=== PATIENT | female | born 1960 | race Two or more races ===

== ENCOUNTER → 2017-10-03 | Outpatient (CLI) | payer OTHER, MEDICAID ==
[~2017-10-03] MED LIST: ALBU8.5H IH; CHOL100059 PO; CLIN30GE15 TP; DOXY-179 PO; DULO60CA56 PO; EPIN0.3P15 IM; ERGO500037 PO; FURO-47 PO; GLUC-198 PO; LISI5TAB25 PO; PREG75CA60 PO; SIMV-49 PO; SPIR25TA76 PO; TRAM-429 PO; TRET20CR37 TP
--- NOTE | 2017-10-03 17:49 | RADIOLOGY IMAGING REPORT ---
FACILITY: [facility] PATIENT NAME: Jael Covington : 1960 MR: [id number] V: [id number] EXAM DATE: ORDERING PHYSICIAN: RAKAN GONZALEZ TECHNOLOGIST: Location: [facility] Patient: Jael Covington : 1960 Visit/Account:[id number] Date of Sevice: 10/03/2017 CHEST W/O CONTRAST History: Follow-up; Hx of bilateral LL pulm nodules TECHNIQUE: Contiguous axial images were performed through the chest to the level of the adrenal gla nds. No IV contrast was administered. Coronal and sagittal reformatting was also performed. Dose Lowe ring Technique One of the following dose optimization techniques was utilized in the performance of this exam: Autom ated exposure control; adjustment of the mA and/or kV according to the patient's size; or use of an i terative reconstruction technique. Specific details can be referenced in the facility's radiology C T exam operational policy. COMPARISON STUDIES: None Lungs / Pleura: There is a 3 mm noncalcified subpleural nodule lateral aspect right lower lobe best seen on image 54 of series 3. There is an additional 2 mm subpleural nodule lateral aspect of the right lower lobe best seen on im age 56. There is a 5 x 3 mm subpleural nodule lateral aspect of the right lower lobe best seen on image 64 There is a 4 mm subpleural nodule posterior aspect left lower lobe best seen on image 80 There is a 3 mm nodule posterior lateral left lower lobe best seen on image 76 There is a 6 x 3 mm subpleural nodule lateral aspect of the left lower lobe best seen on image 65. there is a 2 x 3 mm subpleural nodule lateral aspect left lower lobe best seen on image 53. There is 3 mm a pleural nodule posterior aspect left lower lobe best seen on image 48. There is a 5 mm subpleural nodule lateral aspect of the left lower lobe best seen on image 46 is no evidence of pleural effusions. Mediastinum/nodes: Mediastinal structures not ideally evaluated due to lack of intravenous contrast no bulky mediastinal adenopathy is identified Heart and vessels: The ascending thoracic aorta is dilated at 4.3 cm. The descending thoracic aorta is dilated at 3.3 cm. There are mild coronary artery calcifications Musculoskeletal / Body wall: Mild spondylotic changes of the thoracic spine Upper abdomen: Postsurgical changes from a cholecystectomy. small hiatal hernia IMPRESSION: There are numerous small bilateral lower lobe pulmonary nodules ranging in size from 2 mm to 6 mm. T here are no prior studies available for comparison however the patient apparently does have prior out side studies therefore comparison is recommended Ascending thoracic aorta is dilated at 4.3 cm and the descending thoracic aorta is dilated at 3.3 cm Report Dictated By: Grisel Ziegler MD at 10/03/2017 5:37 PM Report E-Signed By: Grisel Ziegler MD at 10/03/2017 5:45 PM WSN:[email or web address]
== END ==
LOC: CT 01:10
PROVIDERS: ATTEND Nurse Practitioner Primary Care
DX: I71.2 Thoracic aortic aneurysm, without rupture (principal)
CPT/HCPCS: 71250

== ENCOUNTER → 2018-02-25 | Outpatient (CLI) | payer OTHER, MEDICAID ==
[2018-02-25 14:38] LABS: LDL CHOLESTEROL 96 mg/dl
== END ==
LOC: LAB 13:45
PROVIDERS: ATTEND Nurse Practitioner Primary Care
DX: E78.5 Hyperlipidemia, unspecified (principal)
CPT/HCPCS: 36415; 82040; 82247; 82310; 82374; 82435; 82465; 82565; 82947; 83718; 84075; 84132; 84155; 84295; 84450; 84460; 84478; 84520

== ENCOUNTER → 2018-03-15 | Outpatient (CLI) | payer OTHER | LOC: LAB 17:19 | PROVIDERS: ATTEND Nurse Practitioner Primary Care | DX: I10 Essential (primary) hypertension (principal); R79.89 Other specified abnormal findings of blood chemistry | CPT/HCPCS: 36415; 82040; 82247; 82306; 82310; 82374; 82435; 82565; 82947; 84075; 84132; 84155; 84295; 84450; 84460; 84520 ==

== ENCOUNTER → 2018-03-22 | Outpatient (CLI) | payer OTHER ==
--- NOTE | 2018-03-22 17:52 | RADIOLOGY IMAGING REPORT ---
[place] [facility] [place]: Jael Covington : 1960 MR: [id number] V: [id number] EXAM DATE: ORDERING PHYSICIAN: PEEWEE OLIVO TECHNOLOGIST: [place] [facility] [place] Jael Covington : 1960 Visit/Account:[id number] Date of Sevice: 03/22/2018 CHEST W/O CONTRAST History: Pulmonary nodules TECHNIQUE: Contiguous axial images were performed through the chest to the level of the adrenal gla nds. No IV contrast was administered. Coronal and sagittal reformatting was also performed.Dose Lower ing Technique One of the following dose optimization techniques was utilized in the performance of this exam: Autom ated exposure control; adjustment of the mA and/or kV according to the patient's size; or use of an i terative reconstruction technique. Specific details can be referenced in the facility's radiology C T exam operational policy. COMPARISON STUDIES: October 03, 2017. Lungs / Pleura: One compared the prior CT although pulmonary nodules have remained stable ranging i n size from 2 to 6 mm. No new pulmonary nodules are identified. Mediastinum/nodes: negative. Heart and vessels: The ascending thoracic aorta appears less dilated on the current examination catalina ures less than 4 cm in diameter. The previous apparent dilatation may be related to artifacts from l ack of cardiac gating. The descending thoracic aorta also no longer appears dilated. There are mild coronary artery calcifications Musculoskeletal / Body wall: There are spondylotic changes in the thoracic spine. Upper abdomen: There is a small hiatal hernia. There are postsurgical changes from a cholecystecto my IMPRESSION: All of the pulmonary nodules in the lower lobes appears stable measuring between two and 6 mm. For mu ltiple nodules measuring less than 6 mm, in a low risk patient (minimal or absent smoking history, no history of malignancy), no routine followup is recommended. In a high risk patient (smoking or malig cee history), optional 12 month followup can be obtained. The thoracic aorta does not appear dilated on the current examination. The apparent widening on the prior study may have been related to motion artifact and lack of cardiac gating Mild coronary artery calcifications are again noted Small hiatal hernia Report Dictated By: Grisel Ziegler MD at 03/22/2018 4:58 PM Report E-Signed By: Grisel Ziegler MD at 03/22/2018 5:08 PM WSN:[email or web address]
--- NOTE | 2018-03-22 22:09 | RADIOLOGY IMAGING REPORT ---
FACILITY: [facility] [place] PATIENT NAME: Jael Covington : 1960 MR: [id number] V: [id number] EXAM DATE: ORDERING PHYSICIAN: PEEWEE OLIVO TECHNOLOGIST: Location: [facility] [place] Patient: Jael Covington : 1960 Visit/Account:[id number] Date of Sevice: 03/22/2018 Ultrasound of the left labia: Indication: Evaluation of left labial swelling and possible mass. Technique: Targeted imaging was performed over the area of interest. Comparison: None. Findings: Within the left labia, there is a mildly hypoechoic, solid-appearing lesion, measuring appr oximately 1.8 x 1.7 x 0.7 cm. The differential diagnosis includes malignancy, complex Bartholin's gla nd cyst, or abscess. Further clinical evaluation is warranted. Impression: As above. Report Dictated By: Tony Barton MD at 03/22/2018 9:26 PM Report E-Signed By: Tony Barton MD at 03/22/2018 10:06 PM WSN:[id number]
== END ==
LOC: US 00:27
PROVIDERS: ATTEND Obstetrics & Gynecology
DX: R91.8 Other nonspecific abnormal finding of lung field (principal); I25.10 Atherosclerotic heart disease of native coronary artery without angina pectoris; K44.9 Diaphragmatic hernia without obstruction or gangrene; N94.89 Other specified conditions associated with female genital organs and menstrual cycle
CPT/HCPCS: 76999

== ENCOUNTER → 2018-03-22 | Outpatient (CLI) | payer OTHER | LOC: CT 00:26 | PROVIDERS: ATTEND Nurse Practitioner Primary Care | DX: Z02.9 Encounter for administrative examinations, unspecified (principal) | CPT/HCPCS: 71250 ==

== ENCOUNTER → 2018-04-04 | Outpatient (CLI) | payer OTHER ==
[~2018-04-04] MED LIST changes: +GADOBENATE 529MG/1ML 15ML VIAL IVP ONE; +NS(*) 0.9% 50 ML BAG 50 ML ONE; +SULF-198 PO
--- NOTE | 2018-04-04 15:48 | RADIOLOGY IMAGING REPORT ---
FACILITY: [facility] PATIENT NAME: Jael Covington : 1960 MR: [id number] V: [id number] EXAM DATE: ORDERING PHYSICIAN: PEEWEE OLIVO TECHNOLOG[place]: [place] [facility] [place]ael [place] : 1960 Visit/Account:[id number] Date of Sevice: 04/04/2018 Exam type: PELVIS W W/O CONTRAST History: 57-year-old female with a left labial cyst Comparison: Pelvic ultrasound 08/27/2016 TECHNIQUE: Multiplanar multisequence MRI imaging of the pelvis was performed with and without contras t. Patient received 15 cc of MultiHance contrast for this study.. Findings: The uterus is anteverted measures 5.7 x 4.5 x 5.5 cm. Cluster nabothian cysts at the cervix is noted . Endometrial stripe measures 6 mm which is slightly prominent for age. Vagina, bladder, urethra and rectum are unremarkable. The visualized labial cyst is questioned. Thin-walled cystic structure in right lower quadrant measures 8.4 x 5.4 x 7 cm possibly an ovarian cy st and can be followed with ultrasound. IMPRESSION: 1. No visualized labial cyst as clinically questioned. 2. Prominent cluster of nabothian cysts associated with a cervix. 3. Endometrial stripe measures 6 mm slightly thickened for age. 4. Ovaries are not well-visualized. 8.4 x 5.4 x 7 cm thin-walled cystic structure right lower quadr ant may represent an exophytic right ovarian cyst and can be followed with transabdominal ultrasound. Report Dictated By: Ubaldo Pepe MD at 04/04/2018 3:26 PM Report E-Signed By: Ubaldo Pepe MD at 04/04/2018 3:44 PM WSN:[email or web address]
== END ==
LOC: MRI 00:41
PROVIDERS: ATTEND Obstetrics & Gynecology
DX: N90.7 Vulvar cyst (principal)
CPT/HCPCS: 72197; A9577; J7050

== ENCOUNTER → 2018-05-08 | Outpatient (CLI) | payer OTHER, MEDICAID ==
[~2018-05-08] MED LIST changes: -GADOBENATE 529MG/1ML 15ML VIAL IVP ONE; +LISI-362 PO; -NS(*) 0.9% 50 ML BAG 50 ML ONE; +OMEP40CA48 PO; +[UNRECOGNIZED DRUG - CODE] PO
--- NOTE | 2018-05-08 17:23 | RADIOLOGY IMAGING REPORT ---
FACILITY: [facility] PATIENT NAME: Jael Riddle : 1960 MR: [id number] V: [id number] EXAM DATE: ORDERING PHYSICIAN: PEEWEE OILVO TECHNOLOGIST: Location: [facility] Patient: Jael Riddle : 1960 Visit/Account:[id number] Date of Sevice: 05/08/2018 PELVIC HISTORY: Mass Right lower quad abdomen found on mri TECHNIQUE: Transvaginal and transabdominal ultrasound pelvis. COMPARISON: MR the pelvis April 04, 2018 FINDINGS: Uterus: ; 9.4 cm length x 5.3 cm AP x 6.1 cm transverse. Myometrium: Three uterine fibroids are demonstrated. One fibroid is intramural, anterior fundal catalina uring 1.4 x 1.8 x 2 cm. A second fibroid is anterior intramural left lateral fundal measuring 1.3 x 2.1 x 1.6 in meters. A third fibroid is anterior intramural close to the endometrial stripe measurin g 1.4 x 1.5 x 1.4 cm.. Endometrium: Limited evaluation due to body habitus; double thickness 4.5 mm. Cervix: Numerous nabothian cysts. Ovaries: Right - not visualized due to patient's body habitus. There is an 8.9 x 7.3 x 5.8 cm right adne xal cyst Left - not visualized due to patient's body habitus. Blood flow is documented in each ovary by duplex Doppler ultrasound. Adnexa: Grossly unremarkable. Free pelvic fluid: None. IMPRESSION: Three uterine fibroids as described above the largest measuring 2.1 cm in diameter Ovaries were not well seen due to patient's body habitus. There is an 8.9 x 7.3 x 5.8 cm right adnex al cyst Numerous nabothian cysts Report Dictated By: Grisel Ziegler MD at 05/08/2018 5:13 PM Report E-Signed By: Grisel Ziegler MD at 05/08/2018 5:19 PM WSN:[email or web address]
== END ==
LOC: LAB 12:22
PROVIDERS: ATTEND Nurse Practitioner Primary Care
DX: D25.9 Leiomyoma of uterus, unspecified (principal); N83.8 Other noninflammatory disorders of ovary, fallopian tube and broad ligament; N88.8 Other specified noninflammatory disorders of cervix uteri; E55.9 Vitamin D deficiency, unspecified
CPT/HCPCS: 36415; 76830; 76856; 82306; 83735

== ENCOUNTER → 2018-05-08 | Outpatient (CLI) | payer OTHER, MEDICAID | LOC: LAB 12:20 | PROVIDERS: ATTEND Obstetrics & Gynecology | DX: R19.03 Right lower quadrant abdominal swelling, mass and lump (principal) | CPT/HCPCS: 86304 ==

== ENCOUNTER → 2018-05-12 | Outpatient (CLI) | payer OTHER, MEDICAID ==
[~2018-05-12] MED LIST changes: +IBUP600T22 PO; +LISI20TA29 PO; +OXYC-373 PO
[2018-05-12 15:55] LABS: PLATELET COUNT, AUTOMATED 148 K/uL (150-450)
--- NOTE | 2018-05-15 06:57 | EKG ---
FACILITY: [facility] - [place] PATIENT NAME: MIAN JALLOH : [id number] MR: [id number] V: [id number] EXAM DATE: ORDERING PHYSICIAN: PEEWEE OLIVO TECHNOLOGIST: EYAD Howard Reason : PRE OP SCREENING Blood Pressure : / mmHG Vent. Rate : 077 BPM Atrial Rate : 077 BPM P-R Int : 188 ms QRS Dur : 080 ms QT Int : 392 ms P-R-T Axes : 064 -13 032 degrees QTc Int : 443 ms Normal sinus rhythm Normal ECG No previous ECGs available Confirmed by JUANA SANDOVAL ([id number]) on 05/15/2018 9:20:33 AM Referred By: Confirmed By:JUANA SANDOVAL
== END ==
LOC: LAB 15:41
PROVIDERS: ATTEND Obstetrics & Gynecology
DX: E55.9 Vitamin D deficiency, unspecified (principal); I10 Essential (primary) hypertension
CPT/HCPCS: 82040; 82247; 82306; 82310; 82374; 82435; 82565; 82947; 84075; 84132; 84155; 84295; 84450; 84460; 84520; 85025

== ENCOUNTER 2018-05-17 01:10 | Day surgery (SDC) | payer OTHER, MEDICAID ==
[~2018-05-17] VITALS: Ht 157.5 cm; Wt 119.3 kg
[2018-05-17] MEDS ORDERED: ROCURONIUM BROM 10 MG/ML 10 ML ONE (10:58)
[2018-05-17 12:05] VITALS: BP 155/90
[2018-05-17] MEDS ORDERED: FAMOTIDINE 20 MG TAB PO ONE (12:40)
--- NOTE | 2018-05-17 13:28 | RADIOLOGY IMAGING REPORT ---
FACILITY: [facility] [place] PATIENT NAME: Jael Riddle : 1960 MR: [id number] V: [id number] EXAM DATE: ORDERING PHYSICIAN: JUANA WALLIS TECHNOLOGIST: Location: [facility] - [place] Patient: Jael Riddle : 1960 Visit/Account:[id number] Date of Sevice: 05/15/2018 Exam type: CERVICAL SPINE 2 OR 3 VIEW History: HX OF RA, preop Comparison: None. Findings: Three lateral views of the cervical spine in the neutral, flexion and extension position were submitt ed. There is no abnormal motion identified at C1-2. There are mild spondylotic changes at C5-6 with mild disc space narrowing no evidence of prevertebral soft tissue swelling IMPRESSION: 1. No abnormal motion at C1-2 Report Dictated By: Grisel Ziegler MD at 05/17/2018 1:22 PM Report E-Signed By: Grisel Ziegler MD at 05/17/2018 1:23 PM WSN:[email or web address]
[2018-05-17] MEDS ORDERED: ONDANSETRON 4 MG/2 ML VIAL ONE ×2 (13:44→16:31)
[2018-05-17] MEDS ORDERED: fentaNYL CITR 250 MCG/5 ML AMP ONE (13:44)
[2018-05-17] MEDS ORDERED: SUGAMMADEX SOD 200 MG/2 ML SDV ONE (13:44)
[2018-05-17] MEDS ORDERED: METOCLOPRAMIDE 10 MG/2 ML SDV ONE (13:44)
[2018-05-17] MEDS ORDERED: DEXAMETHASONE SOD 4 MG/ML VIAL ONE (13:45)
[2018-05-17] MEDS ORDERED: BUPIV/EPI 0.25% 1:200,000 50ML INFIL ONE (14:14)
[2018-05-17] MEDS ORDERED: ACETAMINOPHEN(*)1000 MG/100 ML 100 ML IVPB ONE (14:31)
[2018-05-17] MEDS ORDERED: CLINDAMYCIN(*) 600 MG/NS 50 ML 50 ML IV ONE (14:40)
[2018-05-17] MEDS ORDERED: NORMOSOL R SOLN(*) 1000 ML BAG 1,000 ML IV PRN (14:40)
[2018-05-17] MEDS ORDERED: MIDAZOLAM 2 MG/2 ML VIAL IVP PRN (14:40)
[2018-05-17] MEDS ORDERED: LEVOFLOXACIN/D5W*500 MG/100 ML 100 ML IVPB ONE (14:40)
[2018-05-17] MEDS ORDERED: LIDOCAINE/SOD BICARB 8.4% SYR ID ONE (14:40)
[2018-05-17 16:00] VITALS: BP 113/72
[2018-05-17] MEDS ORDERED: METOCLOPRAMIDE 10 MG/2 ML SDV IVP PRN (16:20)
[2018-05-17] MEDS ORDERED: LR(*) 1000 ML BAG 1,000 ML IV ONE (16:20)
--- NOTE | 2018-05-17 16:20 | Post Operative Note ---
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
[2018-05-17] MEDS ORDERED: OXYC-373 PO (16:24)
--- NOTE | 2018-05-17 16:36 | Short(Outpt) Discharge Summary ---
Discharge Summary Reason for Hosp/Final Diag: (1) Status post laparoscopic surgery Departure Discharge to: Home, Self Care Discharge Instructions Home Meds Active Scripts Lisinopril (LISINOPRIL) 10 Mg Tablet, 1 TAB PO QDAY for 90 Days, #90 TAB 0 Refills Prov:RAKAN GONZALEZ DNP [facility] 05/16/18 Erythromycin Base (ERYTHROMYCIN) 250 Mg Capsule.dr, 1 CAP PO BID for 7 Days, #14 CAP 0 Refills Prov:RAKAN GONZALEZ DNP [facility] 05/03/18 Ergocalciferol (Vitamin D2) (VITAMIN D2) 50,000 Unit Capsule, 1 CAP PO QWEEK, #8 CAPSULE 0 Refills One capsule orally once weekly for 8 weeks. Prov:RAKAN GONZALEZ DNP [facility] 03/17/18 Spironolactone (ALDACTONE) 25 Mg Tablet, 1 TAB PO QHS for 90 Days, #90 TAB 1 Refill Prov:RAKAN GONZALEZ DNP [facility] 03/15/18 Furosemide (FUROSEMIDE) 40 Mg Tablet, 1 TAB PO QDAY for 90 Days, #90 TAB 1 Re fill Prov:RAKAN GONZALEZ DNP [facility] 03/15/18 Tramadol/Acetaminophen (TRAMADOL-ACETAMINOPHN 37.5-325) 1 Each Tab, 1-2 TAB PO Q8H PRN for PAIN, #45 TAB 2 Refills Prov:RAKAN GONZALEZ DNP [facility] 02/15/18 Simvastatin (SIMVASTATIN) 20 Mg Tablet, 1 TAB PO HS for 90 Days, #90 TAB 0 Refills Prov:RAKAN GONZALEZ DNP [facility] 02/15/18 Epinephrine (EPIPEN 2-LAUREN) 0.3 Mg/0.3 Ml Pen.injctr, 0.3 MG IM PRN PRN for Anaphylaxis, #1 PACK 1 Refill Prov:RAKAN GONZALEZ DNP [facility] 05/13/17 Albuterol Sulfate 90 Mcg/Act (PROAIR HFA 90 MCG/ACT) 8.5 Gm Hfa.aer.ad, 2 PUFF IH Q4-6H PRN for SHORTNESS OF BREATH, #1 INHALER 1 Refill Prov:RAKAN GONZALEZ DNP [facility] 05/13/17 Reported Medications Cholecalciferol (Vitamin D3) (VITAMIN D3) 1,000 Unit Capsule, 1000 UNIT PO DAILY, CAPSULE 05/24/17 Discontinued Reported Medications Lisinopril (LISINOPRIL) 20 Mg Tablet, 20 MG PO QDAY, TAB 05/15/18 Glucosa Lyons 2KCL/Chondroitin Lyons (GLUCOSAMINE & CHONDROITIN CAP) Unknown Strength Capsule, PO DAILY, CAPSULE 05/24/17 Discontinued Scripts Ibuprofen (IBUPROFEN) 600 Mg Tablet, 1 TAB PO Q8H for pain, #30 TAB 0 Refills TAKE WITH FOOD EVERY 6 HOURS Prov:PEEWEE OLIVO MD 05/12/18 Oxycodone Hcl/Acetaminophen (OXYCODONE-ACETAMINOPHEN 5-325) 1 Each Tablet, 1 EACH PO Q4-6H PRN for ain, #30 TAB 0 Refills Prov:PEEWEE OLIVO MD 05/12/18 Omeprazole (OMEPRAZOLE) 40 Mg Capsule.dr, 1 TAB PO QDAY for 30 Days, #30 CAP 0 Refills Prov:RAKAN GONZALEZ DNP, [facility] 05/03/18 Lisinopril (LISINOPRIL) 10 Mg Tablet, 1 TAB PO QDAY for 90 Days, #90 TAB 0 Refills Prov:RAKAN GONZALEZ DNP [facility]- 05/03/18 Follow up Referrals: 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
[2018-05-17] MEDS ORDERED: IBUPROFEN 800 MG TAB PO SCH (17:00)
[2018-05-17] MEDS ORDERED: IBUP600T22 PO (17:06)
[2018-05-17] MEDS ORDERED: PROMETHAZINE 25 MG/ML 1 ML AMP ONE (17:08)
[2018-05-17 18:30] VITALS: BP_SYST 116; BP_DIAS 116; BP_DIAS 62
[2018-05-17 19:00] VITALS: BP 121/52
[2018-05-17 19:20] VITALS: BP 141/83
[2018-05-17 19:22] VITALS: BP 139/87
--- NOTE | 2018-05-17 19:26 | OPERATIVE REPORT 1 ---
EVENT DATE: May 17, 2018 SURGEON: Elenita Varner MD ANESTHESIOLOGIST: Yaakov Duque MD ANESTHESIA: General endotracheal tube. INTERPERSONAL COMMUNICATIONS PROFESSOR: Eriberto Diggs DO PREOPERATIVE DIAGNOSES 1. Cystic right adnexal mass diagnosed on MRI and ultrasound. 2. Persistent left labial mass. POSTOPERATIVE DIAGNOSES 1. Cystic right retroperitoneal mass. 2. Persistent left labial mass. PROCEDURES PERFORMED 1. Diagnostic laparoscopy. 2. Laparoscopic bilateral salpingectomy. 3. Left labial mass excision. FINDINGS 1. Some scar tissue at her prior cholecystectomy site. 2. Right cystic retroperitoneal mass just below appendix. 3. Normal gynecologic organs. SPECIMENS REMOVED 1. Bilateral fallopian tubes. 2. Left posterior labia. ESTIMATED BLOOD LOSS 25 mL INDICATIONS FOR PROCEDURE This patient is a 57-year-old, 2, para 2, who initially presented to clinic with chronic left labial swelling and mass. During her evaluation, she had an MRI to further delineate this mass, at which time an 8.4 x 5.4 x 7 cm cyst in the right lower quadrant was identified. She then underwent an ultrasound which revealed a right adnexal cyst measuring 9 cm which was simple in appearance. Her CA-125 was 20. She continued to have issues with this left labial mass which was ill-defined. She, therefore, was consented for surgery to remove the right ovarian cyst, bilateral fallopian tubes, and the labial mass. Please see History and Physical for full details. DESCRIPTION OF PROCEDURE The patient was properly identified and taken to the operating room. She was placed under general endotracheal tube anesthesia and then placed in the dorsal lithotomy position and prepped and draped in the usual fashion for a laparoscopic and vaginal surgery. She had SCDs on and functioning, and she did receive antibiotics for prophylaxis. A speculum was placed to visualize the cervix, which was without lesion. The anterior lip was grasped with an Allis clamp, and an acorn uterine manipulator was placed for minimal manipulation during the laparoscopic portion of the procedure. Attention was then turned to the laparoscopic portion of the procedure where the infraumbilical region was infiltrated with 0.25% Marcaine with epinephrine, and a 5 mm incision was made. A Veress needle was tested and proven to be functioning and, therefore, passed into the intra-abdominal cavity through this incision in the umbilicus using the double click test. Pneumoperitoneum was then achieved without difficulty. The 5 mm trocar was introduced under direct visualization, revealing a normal-appearing anterior abdominal wall in the pelvis. Surveillance of the upper abdomen did reveal some scar tissue along the prior cholecystectomy site. Otherwise, there were no significant adhesions. Two additional incisions were then made, a 5 mm incision on the patient's right side and an 11 mm on left side in order to accommodate these trocars which were introduced under direct visualization. The patient was then placed into Trendelenburg position, and the bowel was retracted out of the pelvis. At this time, the uterus appeared within normal limits, as did bilateral tubes and ovaries. There was no cystic mass in the pelvis at that time. Further surveillance did reveal an apparent cystic mass that was within the right retroperitoneum just above the iliac crest and just below the appendix. Due to her habitus and inability to determine exactly where it was coming from, I decided at this time not to try to excise this mass. However, bilateral fallopian tubes were taken using a Gyrus, working along the mesosalpinx. Hemostasis was assured along both mesosalpinx and the attachment to the uterus. The tubes were removed through the 11 mm trocar site without difficulty. Hemostasis was then assured. The patient was then flattened out, and using a Derrick-Thomasen device, the fascia of the 11 mm port was reapproximated with an 0 Vicryl. A pneumoperitoneum was then released, and all three skin incisions were reapproximated using a 4-0 Monocryl in a subcuticular fashion. Dermabond was placed over the incisions. Attention was then turned to the labial mass excision. On exam, the entire posterior left .labia was significantly indurated and firm, indicating likely a chronic infection or chronic inflammation. I was able to excise the entire firm and redundant area, which essentially removed the most posterior aspect of the left labia majora. Once this was removed, hemostasis was achieved within reason using electrocautery along the bed of the excision. Using a 2-0 Vicryl, the deep tissue was reapproximated, followed by more proximal tissue to bring the skin close to itself. A 3-0 Monocryl was then utilized to reapproximate the incision using a subcuticular fashion. Hemostasis was assured. Irrigation was performed. The manipulator and Allis clamp had been removed prior to excision of the labial mass. The patient tolerated this procedure well and recovered in the Post-Anesthesia Care Unit. All sponge, needle, and instrument counts were correct at the end of this procedure. YASIR
== END 2018-05-17 18:00 | disposition home or self-care (01) ==
LOC: OR 01:10
PROVIDERS: ATTEND Obstetrics & Gynecology
DX: D28.2 Benign neoplasm of uterine tubes and ligaments (principal); N82.8 Other female genital tract fistulae; D28.0 Benign neoplasm of vulva
CPT/HCPCS: 11424; 58661; 72040; 88302; 88305; J0131; J1100; J1956; J2250; J2405; J2550; J2765; J3010; J3490

== ENCOUNTER → 2018-06-14 | Outpatient (CLI) | payer OTHER, MEDICAID ==
[~2018-06-14] MED LIST changes: +CHOL500045 PO; +OMEP-125 PO
== END ==
LOC: US 01:09
PROVIDERS: ATTEND Nurse Practitioner Primary Care
DX: R06.02 Shortness of breath (principal)
CPT/HCPCS: 93306

== ENCOUNTER → 2018-08-25 | Outpatient (CLI) | payer OTHER, MEDICAID ==
[~2018-08-25] MED LIST changes: +CIPR-344 PO; +DICY20TA70 PO; +IBUP800T37 PO; +METR-1 PO; +PROM-110 PO; +Work Note
--- NOTE | 2018-08-25 11:03 | RADIOLOGY IMAGING REPORT ---
FACILITY: [facility] PATIENT NAME: Jael Covington : 1960 MR: [id number] V: [id number] EXAM DATE: ORDERING PHYSICIAN: RAKAN GONZALEZ TECHNOLOGIST: Location: [facility] - [place] Patient: Jael Covington : 1960 Visit/Account:[id number] Date of Sevice: 08/25/2018 Left knee, four views. HISTORY: Left knee pain, fell on ice two days ago. COMPARISON: None. Moderate size marginal osteophytes and moderate to severe joint space narrowing are present in all th ree knee compartments. A lucency is present in the lateral femoral condyle probably reflecting under lying osteopenia. The proximal tibia is subluxed laterally with respect to the distal femur, probabl y chronic. A few calcific densities are scattered in the soft tissues. No joint effusion. No acute fractures are identified. IMPRESSION: Severe osteoarthritis. Otherwise negative for acute fracture. Report Dictated By: Jona Miller MD at 08/25/2018 10:54 AM Report E-Signed By: Jona Miller MD at 08/25/2018 10:58 AM WSN:[email or web address]
== END ==
LOC: RAD 09:06
PROVIDERS: ATTEND Nurse Practitioner Primary Care
DX: M17.12 Unilateral primary osteoarthritis, left knee (principal)
CPT/HCPCS: 73564

== ENCOUNTER 2018-08-28 07:57 | Emergency (ER) | payer OTHER, MEDICAID ==
[~2018-08-28 07:57] MED LIST changes: -CIPR-344 PO; -DICY20TA70 PO; -METR-1 PO; -PROM-110 PO
--- NOTE | 2018-08-28 07:57 | ER Report ---
History and Physical Time Seen By MD: 07:56 HPI/ROS CHIEF COMPLAINT: Abdominal pain HISTORY OF PRESENT ILLNESS: Patient is a 57-year-old female who presents to emergency department with severe crampy abdominal pain and severe nausea and vomiting that began yesterday morning insidious and has progressed throughout the evening and today. Patient states that she's had her gallbladder removed but no other surgeries. She denies any fevers or chills. She cannot find a position of comfort and is writhing on the gurney for pain. Patient denies any fevers or chills she denies chest pain or shortness of breath. No similar symptoms in the past. REVIEW OF SYSTEMS: Constitutional: No fever, no chills. Eyes: No discharge. ENT: No sore throat. Cardiovascular: No chest pain, no palpitations. Respiratory: No cough, no shortness of breath. Gastrointestinal: Generalized crampy abdominal pain with nausea and vomiting no diarrhea Genitourinary: No hematuria. Musculoskeletal: No back pain. Skin: No rashes. Neurological: No headache. Allergies: Coded Allergies: Egg Derived (Verified Allergy, Severe, 05/16/17) Penicillins (Verified Allergy, Severe, 05/16/17) bee pollen (Verified Allergy, Severe, 05/16/17) Home Meds Active Scripts [Work Note] No Conflict Check Patient seen in the office today and evaluated after falling on ice. Please excuse from work 08/24 & 08/25 due to falling on ice on 08/23/18 Prov:RAKAN GONZALEZ DNP, FNP-BC 08/25/18 Ibuprofen (IBUPROFEN) 800 Mg Tablet, 1 TAB PO Q8H PRN for PAIN, #20 TAB 0 Refills Prov:RAKAN GONZALEZ DNP, FNP-BC 08/25/18 Omeprazole (OMEPRAZOLE) 20 Mg Capsule.dr, 1 CAP PO QDAY, #90 CAP 1 Refill Prov:RAKAN GONZALEZ DNP, FNP-BC 06/14/18 Cholecalciferol (Vitamin D3) (VITAMIN D) 5,000 Unit Tablet, 2 TAB PO QDAY for 90 Days, #90 CAPSULE 0 Refills Prov:RAKAN GONZALEZ DNP, FNP-BC 06/14/18 Lisinopril (LISINOPRIL) 10 Mg Tablet, 1 TAB PO QDAY for 90 Days, #90 TAB 0 Refills Prov:RAKAN GONZALEZ Josh [facility] 05/16/18 Spironolactone (ALDACTONE) 25 Mg Tablet, 1 TAB PO QHS for 90 Days, #90 TAB 1 Refill Prov:RAKAN GONZALEZ Josh [facility] 03/15/18 Furosemide (FUROSEMIDE) 40 Mg Tablet, 1 TAB PO QDAY for 90 Days, #90 TAB 1 Refill Prov:CARLOSRAKAN DNP [facility] 03/15/18 Tramadol/Acetaminophen (TRAMADOL-ACETAMINOPHN 37.5-325) 1 Each Tab, 1-2 TAB PO Q8H PRN for PAIN, #45 TAB 2 Refills Prov:CARLOSRAKAN DNP [facility] 02/15/18 Simvastatin (SIMVASTATIN) 20 Mg Tablet, 1 TAB PO HS for 90 Days, #90 TAB 0 Refills Prov:RAKAN GONZALEZ DNP [facility] 02/15/18 Epinephrine (EPIPEN 2-LAUREN) 0.3 Mg/0.3 Ml Pen.injctr, 0.3 MG IM PRN PRN for Anaphylaxis, #1 PACK 1 [facility] 05/13/17 Albuterol Sulfate 90 Mcg/Act (PROAIR HFA 90 MCG/ACT) 8.5 Gm Hfa.aer.ad, 2 PUFF IH Q4-6H PRN for SHORTNESS OF BREATH, #1 INHALER 1 Refill Prov:CARLOSRAKAN SALMERON DNP [facility] 05/13/17 Past Medical/Surgical History Past medical history for hypertension, history of asthma history of g astroesophageal reflux disease, fibromyalgia, hypothyroidism past surgical history for tonsillectomy, cholecystectomy and section laparoscopic bilateral salpingectomy and left labial mass excision, urethral dilatation Hx Smoking: No Smoking Status: Never Smoker Constitutional Vital Sign - Last 24 Hours 08/28/18 08/28/18 08/28/18 08/28/18 07:57 08:00 08:04 08:17 Temp 97.5 Pulse ??? 92 86 Resp 16 48 B/P (MAP) 146/92 (110) Pulse Ox 98 94 O2 Delivery Room Air 08/28/18 08/28/18 08/28/18 08/28/18 08:30 08:35 08:37 08:57 Pulse 82 76 Resp 31 10 B/P (MAP) 157/75 (102) Pulse Ox 79 98 O2 Flow Rate 2.0 08/28/18 08/28/18 09:00 10:02 B/P (MAP) 155/82 (106) O2 Flow Rate 3.0 Physical Exam General/Constitutional: Patient is awake, alert, nontoxic and in no acute respiratory distress. Head: Normocephalic and atraumatic. Neck: Supple, no adenopathy. Cardiovascular: Heart is regular rate and rhythm without audible murmurs, rubs or gallops. Pulmonary: Lungs are clear to auscultation bilaterally. There are no wheezes, rales, or rhonchi. Chest rise is symmetrical Abdomen: Diffuse abdominal pain hyperactive bowel sounds. Extremities: No gross deformities, No peripheral cyanosis. Able to move all 4 extremities. Neuro: Alert and oriented X3, Cranial nerves 2 thru 12 are intact and symmetrical. Patient has normal gait. Skin: No rashes, skin is warm dry and well perfused. Medical Decision Making Data Points Result Diagram: 08/28/18 0802 08/28/18 0802 Laboratory Hematology Test 08/28/18 08:02 08/28/18 09:01 Red Blood Count 5.36 M/uL (4.17-5.56) Mean Corpuscular Volume 92.3 fL (80.0-96.0) Mean Corpuscular Hemoglobin 31.8 pg (26.0-33.0) Mean Corpuscular Hemoglobin Concent 34.5 g/dL (32.0-36.0) Red Cell Distribution Width 13.5 % (11.5-14.5) Mean Platelet Volume 10.7 fL (7.2-11.1) Neutrophils (%) (Auto) 88.0 % (39.4-72.5) Lymphocytes (%) (Auto) 8.8 % (17.6-49.6) Monocytes (%) (Auto) 3.1 % (4.1-12.4) Eosinophils (%) (Auto) 0.0 % (0.4-6.7) Basophils (%) (Auto) 0.1 % (0.3-1.4) Nucleated RBC Relative Count (auto) 0.1 /100WBC Neutrophils # (Auto) 10.6 K/uL (2.0-7.4) Lymphocytes # (Auto) 1.1 K/uL (1.3-3.6) Monocytes # (Auto) 0.4 K/uL (0.3-1.0) Eosinophils # (Auto) 0.0 K/uL (0.0-0.5) Basophils # (Auto) 0.0 K/uL (0.0-0.1) Nucleated RBC Absolute Count (auto) 0.01 K/uL Sodium Level 136 mmol/L (137-145) Potassium Level 3.7 mmol/L (3.5-5.0) Chloride Level 101 mmol/L (98-107) Carbon Dioxide Level 20 mmol/L (22-31) Blood Urea Nitrogen 22 mg/dl (7-18) Creatinine 0.80 mg/dl (0.52-1.04) Glomerular Filtration Rate Calc > 60.0 Random Glucose 182 mg/dl (75-110) Calcium Level 9.5 mg/dl (8.4-10.2) Total Bilirubin 1.3 mg/dl (0.2-1.3) Aspartate Amino Transf (AST/SGOT) 29 U/L (0-35) Alanine Aminotransferase (ALT/SGPT) 24 U/L (0-56) Alkaline Phosphatase 124 U/L (0-126) Total Protein 8.3 g/dl (6.3-8.2) Albumin 4.8 g/dl (3.5-5.0) Lipase 171 U/L (23-300) Helicobacter pylori IgG Antibody Negative (NEGATIVE) Lactate 4.2 mmol/L (0.7-2.1) Chemistry Test 08/28/18 08:02 08/28/18 09:01 White Blood Count 12.1 k/uL (4.5-11.0) Red Blood Count 5.36 M/uL (4.17-5.56) Hemoglobin 17.1 g/dL (12.0-16.0) Hematocrit 49.5 % (34.0-47.0) Mean Corpuscular Volume 92.3 fL (80.0-96.0) Mean Corpuscular Hemoglobin 31.8 pg (26.0-33.0) Mean Corpuscular Hemoglobin Concent 34.5 g/dL (32.0-36.0) Red Cell Distribution Width 13.5 % (11.5-14.5) Platelet Count 180 K/uL (150-450) Mean Platelet Volume 10.7 fL (7.2-11.1) Neutrophils (%) (Auto) 88.0 % (39.4-72.5) Lymphocytes (%) (Auto) 8.8 % (17.6-49.6) Monocytes (%) (Auto) 3.1 % (4.1-12.4) Eosinophils (%) (Auto) 0.0 % (0.4-6.7) Basophils (%) (Auto) 0.1 % (0.3-1.4) Nucleated RBC Relative Count (auto) 0.1 /100WBC Neutrophils # (Auto) 10.6 K/uL (2.0-7.4) Lymphocytes # (Auto) 1.1 K/uL (1.3-3.6) Monocytes # (Auto) 0.4 K/uL (0.3-1.0) Eosinophils # (Auto) 0.0 K/uL (0.0-0.5) Basophils # (Auto) 0.0 K/uL (0.0-0.1) Nucleated RBC Absolute Count (auto) 0.01 K/uL Glomerular Filtration Rate Calc > 60.0 Calcium Level 9.5 mg/dl (8.4-10.2) Total Bilirubin 1.3 mg/dl (0.2-1.3) Aspartate Amino Transf (AST/SGOT) 29 U/L (0-35) Alanine Aminotransferase (ALT/SGPT) 24 U/L (0-56) Alkaline Phosphatase 124 U/L (0-126) Total Protein 8.3 g/dl (6.3-8.2) Albumin 4.8 g/dl (3.5-5.0) Lipase 171 U/L (23-300) Helicobacter pylori IgG Antibody Negative (NEGATIVE) Lactate 4.2 mmol/L (0.7-2.1) EKG/Imaging Imaging FACILITY: [facility] PATIENT NAME: Jael Covington : 1960 MR: [id number] V: [id number] EXAM DATE: ORDERING PHYSICIAN: DOMO STOKES TECHNOLOGIST: Location: [facility] [place] Patient: Jael Covington : 1960 Visit/Account:[id number] Date of : 08/28/2018 COMPUTED TOMOGRAPHY OF THE Abdomen and Pelvis with CONTRAST INDICATION: Abdominal pain. TECHNIQUE: Contiguous axial 3.[address] images were obtained through the abdomen a nd pelvis after the administration of 75 cc Isovue-370. Coronal and sagittal reformatted images were submitted. COMPARISON: MR abdomen July 12, 2018.. FINDINGS: Lung bases: There is a 4 mm nodule in the right lower lobe on series 2 image 9. 3 mm nodule in the right lower lobe on series 2 image 17. 2-3 mm nodule in the right lower lobe series 2 image 17. 4 mm nodule left lower lobe series 2 image 43. 4 mm nodule left lower lobe series 2 image 12. 2-3 mm nodule left lower lobe series 2 image 13. 2-3 mm nodule left lower lobe series 2 image 19. Liver and hepatic vasculature: No focal liver lesion. Gallbladder and bile ducts: Surgically absent gallbladder. Mild prominence of the common bile duct in keeping with cholecystectomy. Spleen: Normal spleen. Pancreas: Normal pancreas. Adrenals: Normal Kidneys, ureters and bladder: Symmetric enhancement. Subcentimeter hypodensity in the right kidney is too small to characterize. No stones or obstruction. Incompletely filled bladder. Retroperitoneum and aorta: Normal caliber aorta. Anterior to the right psoas muscle is a 6.7 cm water attenuation structure. This is similar to an MR of the pelvis dated April 04, 2018. GI tract, mesentery and peritoneum: Small hiatal hernia. No bowel obstruction. No free fluid or free air. There are a few scattered colonic diverticula without definite findings of diverticulitis. Equivocal wall thickening involving the sigmoid colon but with incomplete colonic distention limiting evaluation. Uterus and adnexa: Slightly lobulated contour of the uterus may represent underlying fibroids. Adnexal cystic structure anterior to the right psoas as noted above. Bones and soft tissues: No acute osseous abnormality. IMPRESSION: 1. Equivocal wall thickening involving the sigmoid colon may be entirely due to incomplete colonic distention, but correlate with clinical exam and laboratory findings. 2. Diverticulosis without findings of diverticulitis. 3. 6.7 cm low attenuation cystic structure anterior to the right psoas muscle is similar to prior imaging. 4. Surgically absent gallbladder with mild prominence of the common bile duct in keeping with cholecystectomy. One of the following dose optimization techniques was utilized in the performance of this exam: Automated exposure control; adjustment of the mA and/or kV according to the patient's size; or use of an iterative reconstruction technique. Specific details can be referenced in the facility's radiology CT exam operational policy. Report Dictated By: Imsael Lopez MD at 08/28/2018 9:37 AM Report E-Signed By: Ismael Lopez MD at 08/28/2018 9:54 AM [id number] ED Course/Re-evaluation ED Course 08/28/2018 10:07:35 am patient with significant pain that comes in waves since yesterday. Patient treated with a total of 4 mg of morphine a milligrams of Zo dean 25 mg of Phenergan now resting comfortably. Lactate is elevated but the remaining blood work appears unremarkable. Decision to Disposition Date: Aug 28, 2018 Decision to Disposition Time: 10:32 Depart Departure Latest Vital Signs Vital Signs Date Time Temp Pulse Resp B/P (MAP) Pulse Ox O2 Delivery O2 Flow Rate FiO2 08/28/18 10:02 3.0 08/28/18 09:00 155/82 (106) 08/28/18 08:57 76 10 98 08/28/18 08:00 97.5 Room Air Impression: Primary Impression: Colitis Condition: Improved Disposition: HOME OR SELF-CARE Referrals: RAKAN GONZALEZ DNP, [employer] [facility]-BC (PCP) New Scripts Promethazine Hcl (PROMETHAZINE HCL) 25 Mg Tablet 25 MG PO Q8H for Nausea, #15 TAB 0 Refills Prov: DOMO STOKES MD 08/28/18 Dicyclomine Hcl (DICYCLOMINE HCL) 20 Mg Tablet 20 MG PO QID PRN for abdominal pain for 10 Days, #40 TAB 0 Refills Prov: DOMO STOKES MD 08/28/18 Metronidazole (FLAGYL) 500 Mg Tablet 500 MG PO BID for 7 Days, #14 TAB 0 Refills Prov: DOMO STOKES MD 08/28/18 Ciprofloxacin Hcl 500 Mg Tab (CIPRO 500 MG TAB) 500 Mg Tablet 500 MG PO BID for 7 Days, #14 TAB 0 Refills Prov: DOMO STOKES MD 08/28/18 Departure Forms: ER Transition Record, Medications Reconciliation, Off Work/School Form, School or Work Release?: Work Number of days to be released: 2 Patient Portal Information Patient Instructions: Colitis (ED) Additional Instructions: Return to the emergency department if you do not have improvement of symptoms in the next 24-48 hours or return immediately if symptoms worsen at any time. DOMO STOKES MD Aug 28, 2018 07:57
[2018-08-28] MEDS ORDERED: ONDANSETRON 4 MG/2 ML VIAL IVP ONE ×2 (08:30→09:10)
[2018-08-28] MEDS ORDERED: NS(*) 0.9% 1000 ML BAG 1,000 ML IV ONE (08:30)
[2018-08-28] MEDS ORDERED: MORPHINE 4 MG/ML SDV IVP ONE (08:30)
[2018-08-28 08:39] LABS: PLATELET COUNT, AUTOMATED 180 K/uL (150-450)
[2018-08-28] MEDS ORDERED: ONDANSETRON 4 MG/2 ML VIAL ONE (09:11)
[2018-08-28] MEDS ORDERED: PROMETHAZINE 25 MG/ML 1 ML AMP IVP ONE (09:40)
--- NOTE | 2018-08-28 09:59 | RADIOLOGY IMAGING REPORT ---
FACILITY: [facility] PATIENT NAME: Jael Covington : 1960 MR: [id number] V: [id number] EXAM DATE: ORDERING PHYSICIAN: DOMO STOKES TECHNOLOGIST: Location: Patient: Jael Covington : 1960 Visit/Account:[id number] Date of Sevice: 08/28/2018 COMPUTED TOMOGRAPHY OF THE Abdomen and Pelvis with CONTRAST INDICATION: Abdominal pain. TECHNIQUE: Contiguous axial 3.[address] images were obtained through the abdomen and pelvis after the administration of 75 cc Isovue-370. Coronal and sagittal reformatted images were submitted. COMPARISON: MR abdomen July 12, 2018.. FINDINGS: Lung bases: There is a 4 mm nodule in the right lower lobe on series 2 image 9. 3 mm nodule in the ri ght lower lobe on series 2 image 17. 2-3 mm nodule in the right lower lobe series 2 image 17. 4 mm no dule left lower lobe series 2 image 43. 4 mm nodule left lower lobe series 2 image 12. 2-3 mm nodule left lower lobe series 2 image 13. 2-3 mm nodule left lower lobe series 2 image 19. Liver and hepatic vasculature: No focal liver lesion. Gallbladder and bile ducts: Surgically absent gallbladder. Mild prominence of the common bile duct i n keeping with cholecystectomy. Spleen: Normal spleen. Pancreas: Normal pancreas. Adrenals: Normal Kidneys, ureters and bladder: Symmetric enhancement. Subcentimeter hypodensity in the right kidney i s too small to characterize. No stones or obstruction. Incompletely filled bladder. Retroperitoneum and aorta: Normal caliber aorta. Anterior to the right psoas muscle is a 6.7 cm wate r attenuation structure. This is similar to an MR of the pelvis dated April 04, 2018. GI tract, mesentery and peritoneum: Small hiatal hernia. No bowel obstruction. No free fluid or free air. There are a few scattered colonic diverticula without definite findings of diverticulitis. Equiv ocal wall thickening involving the sigmoid colon but with incomplete colonic distention limiting eval uation. Uterus and adnexa: Slightly lobulated contour of the uterus may represent underlying fibroids. Adnexa l cystic structure anterior to the right psoas as noted above. Bones and soft tissues: No acute osseous abnormality. IMPRESSION: 1. Equivocal wall thickening involving the sigmoid colon may be entirely due to incomplete colonic di stention, but correlate with clinical exam and laboratory findings. 2. Diverticulosis without findings of diverticulitis. 3. 6.7 cm low attenuation cystic structure anterior to the right psoas muscle is similar to prior irma ging. 4. Surgically absent gallbladder with mild prominence of the common bile duct in keeping with cholecy stectomy. One of the following dose optimization techniques was utilized in the performance of this exam: Autom ated exposure control; adjustment of the mA and/or kV according to the patient's size; or use of an i terative reconstruction technique. Specific details can be referenced in the facility's radiology C T exam operational policy. Report Dictated By: Ismael Lopez MD at 08/28/2018 9:37 AM Report E-Signed By: Ismael Lopez MD at 08/28/2018 9:54 AM [id number]
[2018-08-28 10:30] VITALS: BP 157/88
[2018-08-28] MEDS ORDERED: CIPR-344 PO (10:35)
[2018-08-28] MEDS ORDERED: METR-1 PO (10:35)
[2018-08-28] MEDS ORDERED: DICY20TA70 PO (10:36)
[2018-08-28] MEDS ORDERED: PROM-110 PO (10:36)
== END 2018-08-28 10:50 | disposition home or self-care (01) ==
LOC: ER 08:05
DX: K52.9 Noninfective gastroenteritis and colitis, unspecified (principal)
CPT/HCPCS: 36415; 74177; 83605; 83690; 85025; 86677; 96361; 96374; 96375; 96376; 99284; J2270; J2405; J2550; J7030; 82040; 82247; 82310; 82374; 82435; 82565; 82947; 84075; 84132; 84155; 84295; 84450; 84460; 84520

== ENCOUNTER → 2018-08-28 | Outpatient (CLI) | payer OTHER, MEDICAID | LOC: AMB 07:43 | PROVIDERS: ATTEND Nurse Practitioner | DX: R10.84 Generalized abdominal pain (principal) | CPT/HCPCS: A0425; A0427 ==

== ENCOUNTER 2018-10-04 17:09 | Emergency (ER) | payer MEDICAID, OTHER ==
[~2018-10-04 17:09] MED LIST changes: +CIPR-344 PO; +DICY20TA70 PO; +METR-1 PO; +PROM-110 PO
--- NOTE | 2018-10-04 17:23 | ER Report ---
History and Physical Time Seen By MD: 17:20 Hx. of Stated Complaint: patient states that she has mid epigastric pain that has been going off and on since 08/27/18; patient states that she is having nausea and vomiting as well and has not been getting better HPI/ROS CHIEF COMPLAINT: Abdominal pain HISTORY OF PRESENT ILLNESS: 58 year old female presents to ED with abdominal pain. Reports pain started today after lunch around 1300. Reports the pain is more of a pressure in the upper mid-abdominal area. It feels like there is a fist deep in her abdomen. It feels as if she has to have a bowel movement, but when she tries she doesn't have to go. Rates her pain an 8 out of 10. Denies taking anything for the pain; reports associated symptoms of nausea and vomiting. Has vomited three times today, so has not been able to keep much food or fluids down. Patient was diagnosed with colitis on August 28. Reports this pain is very similar to the pain when she was diagnosed with colitis. Reports that she was placed on antibiotics which helped with her pain at that time. Since then she has had pain very intermittently. Reports she has only been able to eat a bland diet because of the pain and associated nausea. REVIEW OF SYSTEMS: Constitutional: Reports decreased appetite. Reports chills but no fever. HEENT: Denies headache, vision changes. Respiratory: No cough, no dyspnea. Cardiovascular: No chest pain, no palpitations. Gastrointestinal: Reports upper mid-abdominal pain. Reports nausea and vomiting. Reports soft stools. Reports that she noticed a small amount of pink tinged to bright red blood on the toilet paper when she wiped. Denies coffee ground or tarry stools. Genitourinary: Reports recent menstrual bleed. Denies pain or burning with urination. Reports urine looks dehydrated. Musculoskeletal: No back pain. Allergies: Coded Allergies: Egg Derived (Verified Allergy, Severe, 10/04/18) Penicillins (Verified Allergy, Severe, 10/04/18) bee pollen (Verified Allergy, Severe, 10/04/18) Home Meds Active Scripts Hydrocodone Bit/Acetaminophen (HYDROCODON-ACETAMINOPHEN 5-325) 1 Each Tablet, 1 EACH PO Q4-6H PRN for PAIN, #8 TAB Prov:JENSEN ELIZONDO 10/04/18 Ondansetron 4 Mg Odt (ONDANSETRON 4 MG ODT) 4 Mg Tab.rapdis, 4 MG PO Q6H PRN for NAUSEA/VOMITING, #20 TAB Prov:DORA [facility]SE [facility] 10/04/18 Promethazine Hcl (PROMETHAZINE HCL) 25 Mg Tablet, 25 MG PO Q8H for Nausea, #15 TAB 0 Refills Prov:DOMO STOKES MD 08/28/18 Dicyclomine Hcl (DICYCLOMINE HCL) 20 Mg Tablet, 20 MG PO QID PRN for abdominal pain for 10 Days, #40 TAB 0 Refills Prov:DOMO STOKES MD 08/28/18 Ciprofloxacin Hcl 500 Mg Tab (CIPRO 500 MG TAB) 500 Mg Tablet, 500 MG PO BID for 7 Days, #14 TAB 0 Refills Prov:DOMO STOKES MD 08/28/18 Ibuprofen (IBUPROFEN) 800 Mg Tablet, 1 TAB PO Q8H PRN for PAIN, #20 TAB 0 [facility] 08/25/18 Omeprazole (OMEPRAZOLE) 20 Mg Capsule.dr, 1 CAP PO QDAY, #90 CAP 1 Refill Prov:RAKAN GON[facility]ALEZ [facility] 06/14/18 Cholecalciferol (Vitamin D3) (VITAMIN D) 5,000 Unit Tablet, 2 TAB PO QDAY for 90 Days, #90 CAPSULE 0 Refills Prov:RAKAN [facility]Z [facility] 06/14/18 Lisinopril (LISINOPRIL) 10 Mg Tablet, 1 TAB PO QDAY for 90 Days, #90 TAB 0 Refills Prov:RAKAN GONZALEZ [facility] 05/16/18 Spironolactone (ALDACTONE) 25 Mg Tablet, 1 TAB PO QHS for 90 Days, #90 TAB 1 Refill Prov:RAKAN GONZALEZ [facility] 03/15/18 Furosemide (FUROSEMIDE) 40 Mg Tablet, 1 TAB PO QDAY for 90 Days, #90 TAB 1 Refill Prov:RAKAN GONZALEZ [facility] 03/15/18 Tramadol/Acetaminophen (TRAMADOL-ACETAMINOPHN 37.5-325) 1 Each Tab, 1-2 TAB PO Q8H PRN for PAIN, #45 TAB 2 Refills Prov:CARLOSRAKAN DNP [facility] 02/15/18 Simvastatin (SIMVASTATIN) 20 Mg Tablet, 1 TAB PO HS for 90 Days, #90 TAB 0 Refills Prov:RAKAN GONZALEZ DNP [facility] 02/15/18 Epinephrine (EPIPEN 2-LAUREN) 0.3 Mg/0.3 Ml Pen.injctr, 0.3 MG IM PRN PRN for Anaphylaxis, #1 PACK 1 Refill Prov:RAKAN GONZALEZ DNP [facility] 05/13/17 Albuterol Sulfate 90 Mcg/Act (PROAIR HFA 90 MCG/ACT) 8.5 Gm Hfa.aer.ad, 2 PUFF IH Q4-6H PRN for SHORTNESS OF BREATH, #1 INHALER 1 Refill Prov:RAKAN GONZALEZ DNP [facility] 05/13/17 Discontinued Scripts Metronidazole (FLAGYL) 500 Mg Tablet, 500 MG PO BID for 7 Days, #14 TAB 0 Refills Prov:DOMO STOKES MD 08/28/18 [Work Note] No Conflict Check Patient seen in the office today and evaluated after falling on ice. Please excuse from work 08/24 & 08/25 due to falling on ice on 08/23/18 Prov:RAKAN GONZALEZ DNP [facility] 08/25/18 Past Medical/Surgical History Patient with past medical hx of hypertension, hypercholesterol, asthma, hiatal h ernia, fibromyalgia, hypothyroid, rheumatoid arthritis, right ovarian left labial mass. Past surgical history significant for lap tristan 2016, , knee scope, right ulnar nerve repair, urethral dilation as a child, tonsillectomy 1975, and multiple eye surgeries. Reviewed Nurses Notes: Yes Hx Smoking: No Smoking Status: Never Smoker Hx Substance Use Disorder: No Constitutional Vital Sign - Last 24 Hours 10/04/18 10/04/18 10/04/18 10/04/18 17:09 17:14 17:16 17:30 Temp 98.4 Pulse ??? 87 Resp 17 B/P (MAP) 171/101 171/101 (124) 144/84 (104) Pulse Ox 96 O2 Delivery Room Air 5/1/19 5/1/19 5/1/19 5/1/19 17:39 18:09 18:18 18:30 Pulse 100 86 B/P (MAP) 141/69 (93) 145/91 (109) Pulse Ox 96 92 10/04/18 10/04/18 10/04/18 10/04/18 18:39 19:00 19:09 19:30 Pulse 77 ??? B/P (MAP) ???/??? (1665) 135/75 (95) Pulse Ox 89 10/04/18 10/04/18 10/04/18 10/04/18 19:39 20:09 20:39 21:02 Pulse 78 92 82 Pulse Ox 89 90 100 O2 Flow Rate 2.0 Physical Exam General Appearance: The patient is alert, has no immediate need for airway protection and no current signs of toxicity. Eyes: Pupils equal and round no injection. Respiratory: Chest is non tender, lungs are clear to auscultation. Cardiac: regular rate and rhythm Gastrointestinal: Abdomen is distended, tender to palpation in mid upper-a bdomen, RLQ and LLQ. Bowel sounds hypoactive. No masses. Patient vomited x1 during exam. Musculoskeletal: Neck: Neck is supple and non tender. Extremities have full range of motion and are non tender. Skin: No rashes or lesions. DIFFERENTIAL DIAGNOSIS: After history and physical exam differential diagnosis was considered for pancreatitis, gastric ulcer, H. pylori, diverticulitis, perforation, obstruction. Medical Decision Making Data Points Result Diagram: 10/04/18181110/04/181811 Laboratory Hematology Test 10/04/18 18:12 10/04/18 19:08 Red Blood Count 4.63 M/uL (4.17-5.56) Mean Corpuscular Volume 92.4 fL (80.0-96.0) Mean Corpuscular Hemoglobin 32.1 pg (26.0-33.0) Mean Corpuscular Hemoglobin Concent 34.7 g/dL (32.0-36.0) Red Cell Distribution Width 13.5 % (11.5-14.5) Mean Platelet Volume 9.9 fL (7.2-11.1) Neutrophils (%) (Auto) 75.7 % (39.4-72.5) Lymphocytes (%) (Auto) 18.4 % (17.6-49.6) Monocytes (%) (Auto) 4.8 % (4.1-12.4) Eosinophils (%) (Auto) 0.6 % (0.4-6.7) Basophils (%) (Auto) 0.5 % (0.3-1.4) Nucleated RBC Relative Count (auto) 0.0 /100WBC Neutrophils # (Auto) 7.0 K/uL (2.0-7.4) Lymphocytes # (Auto) 1.7 K/uL (1.3-3.6) Monocytes # (Auto) 0.4 K/uL (0.3-1.0) Eosinophils # (Auto) 0.1 K/uL (0.0-0.5) Basophils # (Auto) 0.0 K/uL (0.0-0.1) Nucleated RBC Absolute Count (auto) 0.00 K/uL Sodium Level 133 mmol/L (137-145) Potassium Level 3.6 mmol/L (3.5-5.0) Chloride Level 100 mmol/L (98-107) Carbon Dioxide Level 26 mmol/L (22-31) Blood Urea Nitrogen 24 mg/dl (7-18) Creatinine 1.10 mg/dl (0.52-1.04) Glomerular Filtration Rate Calc 51.2 Random Glucose 113 mg/dl (75-110) Calcium Level 9.5 mg/dl (8.4-10.2) Total Bilirubin 0.9 mg/dl (0.2-1.3) Aspartate Amino Transf (AST/SGOT) 22 U/L (0-35) Alanine Aminotransferase (ALT/SGPT) 23 U/L (0-56) Alkaline Phosphatase 86 U/L (0-126) Total Protein 7.4 g/dl (6.3-8.2) Albumin 4.2 g/dl (3.5-5.0) Amylase Level 82 U/L (0-110) Lipase 152 U/L (23-300) Helicobacter pylori IgG Antibody Negative (NEGATIVE) Urine Color Yellow Urine Clarity Clear Urine pH 8.0 pH (4.8-9.5) Urine Specific [place] 1.025 Urine Protein Negative mg/dL (NEGATIVE) Urine Glucose (UA) Negative mg/dL (NEGATIVE) Urine Ketones 20 mg/dL (NEGATIVE) Urine Blood Moderate (NEGATIVE) Urine Nitrite Negative (NEGATIVE) Urine Bilirubin Negative (NEGATIVE) Urine Urobilinogen Negative mg/dL (0.2-1.9) Urine Leukocyte Esterase Trace (NEGATIVE) Urine RBC 38 /HPF (0-2/HPF) Urine WBC 3 /HPF (0-5/HPF) Urine Squamous Epithelial Cells Many /LPF (</=FEW) Urine Bacteria Few /HPF (NONE-FEW) Urine Mucus None /HPF (NONE-FEW) Chemistry Test 10/04/18 18:12 10/04/18 19:08 White Blood Count 9.2 k/uL (4.5-11.0) Red Blood Count 4.63 M/uL (4.17-5.56) Hemoglobin 14.8 g/dL (12.0-16.0) Hematocrit 42.7 % (34.0-47.0) Mean Corpuscular Volume 92.4 fL (80.0-96.0) Mean Corpuscular Hemoglobin 32.1 pg (26.0-33.0) Mean Corpuscular Hemoglobin Concent 34.7 g/dL (32.0-36.0) Red Cell Distribution Width 13.5 % (11.5-14.5) Platelet Count 169 K/uL (150-450) Mean Platelet Volume 9.9 fL (7.2-11.1) Neutrophils (%) (Auto) 75.7 % (39.4-72.5) Lymphocytes (%) (Auto) 18.4 % (17.6-49.6) Monocytes (%) (Auto) 4.8 % (4.1-12.4) Eosinophils (%) (Auto) 0.6 % (0.4-6.7) Basophils (%) (Auto) 0.5 % (0.3-1.4) Nucleated RBC Relative Count (auto) 0.0 /100WBC Neutrophils # (Auto) 7.0 K/uL (2.0-7.4) Lymphocytes # (Auto) 1.7 K/uL (1.3-3.6) Monocytes # (Auto) 0.4 K/uL (0.3-1.0) Eosinophils # (Auto) 0.1 K/uL (0.0-0.5) Basophils # (Auto) 0.0 K/uL (0.0-0.1) Nucleated RBC Absolute Count (auto) 0.00 K/uL Glomerular Filtration Rate Calc 51.2 Calcium Level 9.5 mg/dl (8.4-10.2) Total Bilirubin 0.9 mg/dl (0.2-1.3) Aspartate Amino Transf (AST/SGOT) 22 U/L (0-35) Alanine Aminotransferase (ALT/SGPT) 23 U/L (0-56) Alkaline Phosphatase 86 U/L (0-126) Total Protein 7.4 g/dl (6.3-8.2) Albumin 4.2 g/dl (3.5-5.0) Amylase Level 82 U/L (0-110) Lipase 152 U/L (23-300) Helicobacter pylori IgG Antibody Negative (NEGATIVE) Urine Color Yellow Urine Clarity Clear Urine pH 8.0 pH (4.8-9.5) Urine Specific [place] 1.025 Urine Protein Negative mg/dL (NEGATIVE) Urine Glucose (UA) Negative mg/dL (NEGATIVE) Urine Ketones 20 mg/dL (NEGATIVE) Urine Blood Moderate (NEGATIVE) Urine Nitrite Negative (NEGATIVE) Urine Bilirubin Negative (NEGATIVE) Urine Urobilinogen Negative mg/dL (0.2-1.9) Urine Leukocyte Esterase Trace (NEGATIVE) Urine RBC 38 /HPF (0-2/HPF) Urine WBC 3 /HPF (0-5/HPF) Urine Squamous Epithelial Cells Many /LPF (</=FEW) Urine Bacteria Few /HPF (NONE-FEW) Urine Mucus None /HPF (NONE-FEW) Urinalysis Test 10/04/18 19:08 Urine Color Yellow Urine Clarity Clear Urine pH 8.0 pH (4.8-9.5) Urine Specific [place] 1.025 Urine Protein Negative mg/dL (NEGATIVE) Urine Glucose (UA) Negative mg/dL (NEGATIVE) Urine Ketones 20 mg/dL (NEGATIVE) Urine Blood Moderate (NEGATIVE) Urine Nitrite Negative (NEGATIVE) Urine Bilirubin Negative (NEGATIVE) Urine Urobilinogen Negative mg/dL (0.2-1.9) Urine Leukocyte Esterase Trace (NEGATIVE) Urine RBC 38 /HPF (0-2/HPF) Urine WBC 3 /HPF (0-5/HPF) Urine Squamous Epithelial Cells Many /LPF (</=FEW) Urine Bacteria Few /HPF (NONE-FEW) Urine Mucus None /HPF (NONE-FEW) EKG/Imaging Imaging CT of abdomen and pelvis FINDINGS: Visualized thorax: Left lung base nodules measuring up to 5 mm are unchanged since 10/03/2017. No acute findings. Liver: Negative. Gallbladder and biliary system: Cholecystectomy. No bile duct dilation. Spleen: Negative. Pancreas: Negative. Adrenal glands: Negative. Kidneys and bladder: No renal mass or evidence of an obstructive uropathy. Urinary bladder is unremarkable. Vessels: Within normal limits. Bowel: Tiny hiatal hernia. No gastric distention. No small bowel obstruction. Appendix is unremarkable. Small amount of stool in the colon. There are a few distal colonic diverticula. No bowel inflammation. Pelvic organs: Negative. Lymph nodes, mesentery, and spaces: Well-circumscribed 6.5 x 8.1 x 6.5 cm simple appearing cystic fluid collection in the right lower quadrant anterior to the psoas is unchanged and suggestive of a benign fluid collection such as lymphocele. No lymph node enlargement. Free air/free fluid: None. Musculoskeletal: Tiny fat-containing umbilical hernia. Lumbar spine multilevel mild degenerative disc disease and moderate facet arthropathy. No acute findings. IMPRESSION: 1. No findings of acute disease in the abdomen or pelvis. 2. Chronic/incidental findings as described above. ED Course/Re-evaluation ED Course Upon arrival to the ED patient was admitted to an exam room, history and physical obtained, differentials considered. Patient presents with abdominal pain that started today after lunch around 1300. Reports the pain is more of a pressure in the upper mid-abdominal area. It feels like there is a fist deep in her abdomen. It feels as if she has to have a bowel movement, but when she tries to have a BM, she doesn't have to go. Rates her pain an 8 out of 10. Denies taking anything for the pain; reports associated symptoms of nausea and vomiting. Has vomited three times today, so has not been able to keep much food or fluids down. Patient was diagnosed with colitis on August 28. Reports this pain is very similar to the pain when she was diagnosed with colitis. Reports that she was placed on antibiotics which helped with her pain at that time. Sin ce then she has had pain very intermittently. Reports she has only been able to eat a bland diet because of the pain and associated nausea. Patient reports chills but no fever. Denies burning or frequency on urination. Reports small amount of pink tinged to red blood on toilet paper when she wiped after a bowel movement. Reports recent menstrual bleed; the first one in months. On exam, patient has tenderness to palpation in upper mid-abdomen, LLQ and RLQ. Abdomen slightly distended. Lungs clear to auscultation. Heart with regular rate and rhythm. IV started with 1000mL NS infusing, zofran 4mg IV given, Fentanyl, 50mcg IV given for pain. CBC, CMP, amylase, lipase, H. pylori, UA, and CT of abdomen and pelvis ordered. CBC normal with no elevated WBC, Na 133, Cr 1.10, BUN 24; H. Pylori negative, amylase 82, lipase 152. UA with trace leukocytes, moderate amount of blood, and 20 Ketones. Patient with recent menstrual bleed that could account for the blood in the urine. CT with no findings of acute disease in the abdomen or pelvis. Patient reports nausea and pain were better with initial doses of zofran and fentanyl, but now her nausea and pain are back. Fentanyl giv en at 1935 and zofran at 2030. Zofran did not help with the nausea, so promethazine 12.5mg IV given. CT scan and labs are benign with no acute processes including infection. Discussed with patient the need to follow-up with general surgery for possible colonosccopy. Patient reports vomiting again with the promethazine. However, patient is in agreement with going home tonight with zofran for the nausea. She will call tomorrow to make an appointment with general surgery and follow-up with her PCP this week. Decision to Disposition Date: October 04, 2018 Decision to Disposition Time: 22:11 Depart Departure Latest Vital Signs Vital Signs Date Time Temp Pulse Resp B/P (MAP) Pulse Ox O2 Delivery O2 Flow Rate FiO2 10/04/18 21:02 2.0 10/04/18 20:39 82 100 10/04/18 19:30 135/75 (95) 10/04/18 17:14 98.4 17 Room Air Impression: Primary Impression: Abdominal pain Additional Impression: Nausea & vomiting Condition: Condition Unchanged Disposition: HOME OR SELF-CARE Referrals: RAKAN GONZALEZ DNP, [employer] (PCP) LISSY HOLMAN JOHN A MD New Scripts Hydrocodone Bit/Acetaminophen (HYDROCODON-ACETAMINOPHEN 5-325) 1 Each Tablet 1 EACH PO Q4-6H PRN for PAIN, #8 TAB Prov: JENSEN ELIZONDO [employer] 10/04/18 Ondansetron 4 Mg Odt (ONDANSETRON 4 MG ODT) 4 Mg Tab.rapdis 4 MG PO Q6H PRN for NAUSEA/VOMITING, #20 TAB Prov: JENSEN ELIZONDO KARO 10/04/18 Patient Instructions: Abdominal Pain (ED) Additional Instructions: You may take Zofran as needed for nausea. You may take Lortab every 4-6 hours as needed for pain. Please call Dr. Peguero or Dr. Holman to follow-up for the abdominal, nausea, vomiting. Please follow-up with your primary care provider at the end of this week. Please drink plenty of water and get plenty of rest. Please return to the ER if your pain worsens, your vomiting does not subside, you have difficulty breathing, you develop fevers, or for any other concerns. Problem Qualifiers Primary Impression: Abdominal pain Abdominal location: epigastric Qualified Codes: R10.13 - Epigastric pain Additional Impression: Nausea & vomiting Vomiting type: unspecified Vomiting Intractability: unspecified Qualified Codes: R11.2 - Nausea with vomiting, unspecified JENSEN ELIZONDO KARO October 04, 2018 17:23
[2018-10-04] MEDS ORDERED: NS(*) 0.9% 1000 ML BAG 1,000 ML IV ONE (17:48)
[2018-10-04] MEDS ORDERED: ONDANSETRON 4 MG/2 ML VIAL IVP ONE ×3 (17:50→20:30)
[2018-10-04] MEDS ORDERED: fentaNYL CITR 100 MCG/2 ML AMP IVP ONE ×2 (17:50→19:35)
[2018-10-04 18:20] LABS: PLATELET COUNT, AUTOMATED 169 K/uL (150-450)
[2018-10-04] MEDS ORDERED: IOPAMIDOL 76% 150 ML INFUS BTL 150 ML ONE (18:25)
[2018-10-04 19:30] VITALS: BP 135/75
--- NOTE | 2018-10-04 19:45 | RADIOLOGY IMAGING REPORT ---
FACILITY: [facility] [place] PATIENT NAME: Jael Covington : 1960 MR: [id number] V: [id number] EXAM DATE: ORDERING PHYSICIAN: JENSEN ELIZONDO TECHNOLOGIST: Location: [facility] Patient: Jael Covington : 1960 Visit/Account:[id number] Date of Sevice: 10/04/2018 EXAMINATION: CT abdomen and pelvis with contrast COMPARISON: 08/28/2018 and earlier. HISTORY: Abdominal pain with nausea and vomiting. PROCEDURE: Multiplanar contrast enhanced CT of the abdomen and pelvis with 68 mL intravenous Isovue 3 70. One of the following dose optimization techniques was utilized in the performance of this exam: A utomated exposure control; adjustment of the mA and/or kV according to the patient's size; or use of an iterative reconstruction technique. Specific details can be referenced in the facility's radiolo gy CT exam operational policy. FINDINGS: Visualized thorax: Left lung base nodules measuring up to 5 mm are unchanged since 10/03/2017. No acut e findings. Liver: Negative. Gallbladder and biliary system: Cholecystectomy. No bile duct dilation. Spleen: Negative. Pancreas: Negative. Adrenal glands: Negative. Kidneys and bladder: No renal mass or evidence of an obstructive uropathy. Urinary bladder is unrema rkable. Vessels: Within normal limits. Bowel: Tiny hiatal hernia. No gastric distention. No small bowel obstruction. Appendix is unremarkabl e. Small amount of stool in the colon. There are a few distal colonic diverticula. No bowel inflammat ion. Pelvic organs: Negative. Lymph nodes, mesentery, and spaces: Well-circumscribed 6.5 x 8.1 x 6.5 cm simple appearing cystic flu id collection in the right lower quadrant anterior to the psoas is unchanged and suggestive of a aisha gn fluid collection such as lymphocele. No lymph node enlargement. Free air/free fluid: None. Musculoskeletal: Tiny fat-containing umbilical hernia. Lumbar spine multilevel mild degenerative disc disease and moderate facet arthropathy. No acute findings. IMPRESSION: 1. No findings of acute disease in the abdomen or pelvis. 2. Chronic/incidental findings as described above. Report Dictated By: Tarun Garcia MD at 10/04/2018 7:27 PM Report E-Signed By: Tarun Garcia MD at 10/04/2018 7:42 PM WSN:[id number]
[2018-10-04] MEDS ORDERED: PROMETHAZINE 25 MG/ML 1 ML AMP IVP ONE (20:55)
[2018-10-04] MEDS ORDERED: ONDANSETRON 4 MG ODT TH SL ONE (22:05)
[2018-10-04] MEDS ORDERED: ACET/HYDROC 5/325MG TH ER ONLY 2 TAB/BOTTLE PO ONE (22:05)
[2018-10-04] MEDS ORDERED: HYDR-385 PO (22:07)
[2018-10-04] MEDS ORDERED: ONDA4TAB9 PO (22:07)
[2018-10-06] MEDS ORDERED: SIMV-49 PO (11:37)
== END 2018-10-04 22:19 | disposition home or self-care (01) ==
LOC: ER 17:25
DX: R10.32 Left lower quadrant pain (principal); R11.2 Nausea with vomiting, unspecified
CPT/HCPCS: 74177; 81001; 82150; 83690; 85025; 86677; 87088; 96361; 96374; 96375; 96376; 99284; J2405; J2550; J3010; J7030; Q9967; S0119; 82040; 82247; 82310; 82374; 82435; 82565; 82947; 84075; 84132; 84155; 84295; 84450; 84460; 84520

== ENCOUNTER 2018-10-19 00:59 | Day surgery (SDC) | payer MEDICAID, OTHER ==
[~2018-10-19] VITALS: Ht 157.5 cm; Wt 117.5 kg
[2018-10-19] VITALS (7 sets, daily range): BP systolic 94–149; BP diastolic 56–96
[~2018-10-19 00:59] MED LIST changes: +HYDR-385 PO; +ONDA4TAB9 PO
[2018-10-19] MEDS ORDERED: LIDOCAINE/SOD BICARB 8.4% SYR ID ONE (06:30)
[2018-10-19] MEDS ORDERED: NORMOSOL R SOLN(*) 1000 ML BAG 1,000 ML IV PRN (06:45)
[2018-10-19] MEDS ORDERED: PROPOFOL EMUL(*) 10MG/ML 20 ML 40 ML ONE (07:01)
[2018-10-19] MEDS ORDERED: PROPOFOL EMUL(*) 10MG/ML 20 ML 20 ML ONE ×2 (07:49→08:07)
--- NOTE | 2018-10-19 08:23 | NUR ---
DR. PECK AT BEDSIDE. SPEAKING WITH PT. AND DAUGHTER.
--- NOTE | 2018-10-19 08:37 | Short(Outpt) Discharge Summary ---
Discharge Summary Reason for Hosp/Final Diag: (1) Nausea & vomiting Status: Acute Hospital Course & Plan: pt presented for egd and colonoscopy. she tolerated the procedures well. path pending. she will be discharged home when criteria met. (2) Abdominal pain Status: Acute Departure Discharge to: Home Discharge Instructions Home Meds Active Scripts Furosemide (FUROSEMIDE) 40 Mg Tablet, 1 TAB PO QDAY for 90 Days, #90 TAB 4 Refills Prov:RAKAN GONZALEZ DNP [facility] 10/16/18 Simvastatin (SIMVASTATIN) 20 Mg Tablet, 1 TAB PO HS for 90 Days, #90 TAB 4 R efills Prov:RAKAN GONZALEZ DNP [facility] 10/06/18 Hydrocodone Bit/Acetaminophen (HYDROCODON-ACETAMINOPHEN 5-325) 1 Each Tablet, 1 EACH PO Q4-6H PRN for PAIN, #8 TAB Prov:JENSEN ELIZONDO [facility] 10/04/18 Promethazine Hcl (PROMETHAZINE HCL) 25 Mg Tablet, 25 MG PO Q8H for Nausea, #15 TAB 0 Refills Prov:DOMO STOKES MD 08/28/18 Omeprazole (OMEPRAZOLE) 20 Mg Capsule.dr, 1 CAP PO QDAY, #90 CAP 1 Refill Prov:RAKAN GONZALEZ DNP [facility] 06/14/18 Cholecalciferol (Vitamin D3) (VITAMIN D) 5,000 Unit Tablet, 2 TAB PO QDAY for 90 Days, #90 CAPSULE 0 Refills Prov:RAKAN GONZALEZ DNP [facility] 06/14/18 Lisinopril (LISINOPRIL) 10 Mg Tablet, 1 TAB PO QDAY for 90 Days, #90 TAB 0 [facility] 05/16/18 Spironolactone (ALDACTONE) 25 Mg Tablet, 1 TAB PO QHS for 90 Days, #90 TAB 1 Refill Prov:RAKAN GONZALEZ DNP [facility] 03/15/18 Tramadol/Acetaminophen (TRAMADOL-ACETAMINOPHN 37.5-325) 1 Each Tab, 1-2 TAB PO Q8H PRN for PAIN, #45 TAB 2 Refills Prov:RAKAN GONZALEZ DNP [facility] 02/15/18 Epinephrine (EPIPEN 2-LAUREN) 0.3 Mg/0.3 Ml Pen.injctr, 0.3 MG IM PRN PRN for Anaphylaxis, #1 PACK 1 Refill Prov:RAKAN GONZALEZ DNP [facility] 05/13/17 Albuterol Sulfate 90 Mcg/Act (PROAIR HFA 90 MCG/ACT) 8.5 Gm Hfa.aer.ad, 2 PUFF IH Q4-6H PRN for SHORTNESS OF BREATH, #1 INHALER 1 Refill Prov:RAKAN GONZALEZ DNP [facility] 05/13/17 Discontinued Scripts Ondansetron 4 Mg Odt (ONDANSETRON 4 MG ODT) 4 Mg Tab.rapdis, 4 MG PO Q6H PRN for NAUSEA/VOMITING, #20 TAB Prov:JENSEN ELIZONDO [facility] 10/04/18 Dicyclomine Hcl (DICYCLOMINE HCL) 20 Mg Tablet, 20 MG PO QID PRN for abdominal pain for 10 Days, #40 TAB 0 Refills Prov:DOMO STOKES MD 08/28/18 Ibuprofen (IBUPROFEN) 800 Mg Tablet, 1 TAB PO Q8H PRN for PAIN, #20 TAB 0 Refills Prov:RAKAN GONZALEZ DNP [facility]- 08/25/18 Diet: Regular Activity: As Tolerated Special Instructions: we will call you in 10 days with biopsy results. LISSY PECK October 19, 2018 08:37
== END 2018-10-19 09:35 | disposition home or self-care (01) ==
LOC: OR 00:59
PROVIDERS: ATTEND Surgery
DX: K29.70 Gastritis, unspecified, without bleeding (principal); K44.9 Diaphragmatic hernia without obstruction or gangrene; K57.30 Diverticulosis of large intestine without perforation or abscess without bleeding
CPT/HCPCS: 00813; 43239; 43249; 45378; 87077; 88305; 88313; 88342; J2704; C1726

== ENCOUNTER 2018-11-02 20:26 | Emergency (ER) | payer MEDICAID ==
[~2018-11-02 20:26] MED LIST changes: -OMEP-125 PO; +OMEP-126 PO
--- NOTE | 2018-11-02 20:37 | ER Report ---
History and Physical Time Seen By MD: 20:35 Hx. of Stated Complaint: ABDOMINAL PAIN STARTED AROUND 1PM TODAY. STATES IT HAS HAPPENED A COUPLE OF OF TIMES. HAS AN APPOINTMENT WITH DR MAK TOMORROW. WAS SCOPED LAST WEEK. NOT FINDING ANYTHING WRONG. HAS N/V/D (DREW SINGH) Time Seen By MD: 22:40 (ANAY HODGES DO) HPI/ROS CHIEF COMPLAINT: Abdominal pain HISTORY OF PRESENT ILLNESS: This is a 58-year-old female who presents to the emergency department for recurrent abdominal pain per patient has been seen and evaluated in the emergency department 2 times within the last several months for similar episodes of epigastric pain that begins after eating. Patient states this episode started around 1:00 today, since then she's had nausea, vomiting and diarrhea. She did have an upper and lower GI by Dr. Holman recently. She did have tissue biopsies. She also states that she felt like something was preventing her from continued stooling even though she was having diarrhea, also she did take a laxative. She's had chills, no fevers, denies chest pain or shortness of breath. No rashes or headaches. REVIEW OF SYSTEMS: Constitutional: As above. Eyes: No discharge. ENT: No sore throat. Cardiovascular: No chest pain, no palpitations. Respiratory: No cough, no shortness of breath. Gastrointestinal: As above. Genitourinary: No hematuria. Musculoskeletal: No back pain. Skin: No rashes. Neurological: No headache. (DREW SINGH) HPI/ROS Please see Drew Singh's note (ANAY HODGES DO) Allergies: Coded Allergies: Egg Derived (Verified Allergy, Severe, 11/02/18) Penicillins (Verified Allergy, Severe, 11/02/18) bee pollen (Verified Allergy, Severe, 11/02/18) Home Meds Active Scripts Furosemide (FUROSEMIDE) 40 Mg Tablet, 1 TAB PO QDAY for 90 Days, #90 TAB 4 Refills Prov:RAKAN GONZALEZ DNP [facility] 10/16/18 Simvastatin (SIMVASTATIN) 20 Mg Tablet, 1 TAB PO HS for 90 Days, #90 TAB 4 Refills Prov:RAKAN GONZALEZ DNP [facility] 10/06/18 Hydrocodone Bit/Acetaminophen (HYDROCODON-ACETAMINOPHEN 5-325) 1 Each Tablet, 1 EACH PO Q4-6H PRN for PAIN, #8 TAB Prov:JENSEN ELIZONDO [facility] 10/04/18 Promethazine Hcl (PROMETHAZINE HCL) 25 Mg Tablet, 25 MG PO Q8H for Nausea, #15 TAB 0 Refills Prov:DOMO STOKES MD 08/28/18 Omeprazole (OMEPRAZOLE) 20 Mg Capsule.dr, 1 CAP PO QDAY, #90 CAP 1 Refill Prov:RAKAN GONZALEZ DNP [facility] 06/14/18 Cholecalciferol (Vitamin D3) (VITAMIN D) 5,000 Unit Tablet, 2 TAB PO QDAY for 90 Days, #90 CAPSULE 0 Refills Prov:RAKAN GONZALEZ DNP [facility] 06/14/18 Lisinopril (LISINOPRIL) 10 Mg Tablet, 1 TAB PO QDAY for 90 Days, #90 TAB 0 Refills Prov:RAKAN GONZALEZ DNP [facility] 05/16/18 Spironolactone (ALDACTONE) 25 Mg Tablet, 1 TAB PO QHS for 90 Days, #90 TAB 1 Refill Prov:RAKAN GONZALEZ DNP [facility] 03/15/18 Tramadol/Acetaminophen (TRAMADOL-ACETAMINOPHN 37.5-325) 1 Each Tab, 1-2 TAB PO Q8H PRN for PAIN, #45 TAB 2 Refills Prov:RAKAN GONZALEZ DNP [facility] 02/15/18 Epinephrine (EPIPEN 2-LAUREN) 0.3 Mg/0.3 Ml Pen.injctr, 0.3 MG IM PRN PRN for Anaphylaxis, #1 PACK 1 Refill Prov:RAKAN GONZALEZ DNP [facility] 05/13/17 Albuterol Sulfate 90 Mcg/Act (PROAIR HFA 90 MCG/ACT) 8.5 Gm Hfa.aer.ad, 2 PUFF IH Q4-6H PRN for SHORTNESS OF BREATH, #1 INHALER 1 Refill Prov:RAKAN GONZALEZ DNP [facility] 05/13/17 Past Medical/Surgical History Rosales has a past medical and surgical history of migraine headaches, PVCs, mitral valve prolapse, hypertension, hypercholesterolemia, asthma, intermittent abdominal pain, GERD, right ovarian and left labial mass, fibromyalgia, rhe umatoid arthritis, wears glasses and contacts, hypothyroidism, cholecystectomy, , knee surgery, urethral dilation as a child, bilateral oophorectomy, eye surgery. (DREW SINGH [facility]-) Reviewed Nurses Notes: Yes (DREW SINGH [facility]-) Hx Smoking: No Smoking Status: Never Smoker Exposure to Second Hand Smoke?: Yes Hx Substance Use Disorder: No Hx Alcohol Use: No (DREW SINGH [facility]-) Constitutional Vital Sign - Last 24 Hours 11/02/18 11/02/18 11/02/18 11/02/18 20:30 20:33 20:41 21:41 Temp 97.7 Pulse 80 80 85 Resp 28 B/P (MAP) 135/95 135/95 (108) Pulse Ox 96 96 62 O2 Delivery Room Air 11/02/18 11/02/18 11/02/18 11/02/18 21:45 21:56 22:11 22:16 Pulse 83 83 87 Pulse Ox 95 98 98 O2 Flow Rate 2.0 11/02/18 11/02/18 11/02/18 11/02/18 22:31 22:46 22:55 23:01 Pulse 75 ??? 76 B/P (MAP) 124/93 (103) Pulse Ox 98 98 11/02/18 11/02/18 11/02/18 23:16 23:31 23:39 Pulse 69 71 B/P (MAP) 119/72 (88) Pulse Ox 99 98 Intake and Output 11/02/18 11/02/18 11/03/18 15:00 23:00 07:00 Intake Total 1000 ml Balance 1000 ml (HODGESANAY SAMS S DO) Physical Exam General Appearance: The patient is alert, has no immediate need for airway protection and no signs of toxicity. Eyes: Pupils equal and round no pallor or injection. ENT, Mouth: Mucous membranes are moist. Respiratory: There are no retractions, lungs are clear to auscultation. Cardiovascular: Regular rate and rhythm. No murmurs, clicks or rubs. Gastrointestinal: Abdomen is soft, round, tenderness to the epigastrium into the left upper quadrant, otherwise unremarkable. No masses, hypoactive bowel sounds. Neurological: Alert and oriented 4. Moving all extremities. Following all commands. No focal neuro deficits. Skin: Warm and dry, no rashes. Musculoskeletal: Neck is supple non tender. Extremities are nontender, nonswollen and have full range of motion. DIFFERENTIAL DIAGNOSIS: After history and physical exam differential diagnosis was considered for abdominal pain in a female including but not limited to ovarian cyst, pelvic inflammatory disease, ovarian torsion, urinary tract infection, and appendicitis. (DREW SINGH [facility] Physical Exam Please see Drew Singh's note (ANAY HODGES DO) Medical Decision Making Data Points Result Diagram: 11/02/18215111/02/182151 Laboratory Hematology Test 11/02/18 21:52 Red Blood Count 4.95 M/uL (4.17-5.56) Mean Corpuscular Volume 92.5 fL (80.0-96.0) Mean Corpuscular Hemoglobin 32.3 pg (26.0-33.0) Mean Corpuscular Hemoglobin Concent 34.9 g/dL (32.0-36.0) Red Cell Distribution Width 13.4 % (11.5-14.5) Mean Platelet Volume 10.7 fL (7.2-11.1) Neutrophils (%) (Auto) 85.2 % (39.4-72.5) Lymphocytes (%) (Auto) 10.4 % (17.6-49.6) Monocytes (%) (Auto) 4.1 % (4.1-12.4) Eosinophils (%) (Auto) 0.0 % (0.4-6.7) Basophils (%) (Auto) 0.3 % (0.3-1.4) Nucleated RBC Relative Count (auto) 0.0 /100WBC Neutrophils # (Auto) 7.7 K/uL (2.0-7.4) Lymphocytes # (Auto) 0.9 K/uL (1.3-3.6) Monocytes # (Auto) 0.4 K/uL (0.3-1.0) Eosinophils # (Auto) 0.0 K/uL (0.0-0.5) Basophils # (Auto) 0.0 K/uL (0.0-0.1) Nucleated RBC Absolute Count (auto) 0.00 K/uL Sodium Level 141 mmol/L (137-145) Potassium Level 3.3 mmol/L (3.5-5.0) Chloride Level 104 mmol/L (98-107) Carbon Dioxide Level 20 mmol/L (22-31) Blood Urea Nitrogen 18 mg/dl (7-18) Creatinine 1.00 mg/dl (0.52-1.04) Glomerular Filtration Rate Calc 57.1 Random Glucose 144 mg/dl (75-110) Calcium Level 9.2 mg/dl (8.4-10.2) Total Bilirubin 1.4 mg/dl (0.2-1.3) Aspartate Amino Transf (AST/SGOT) 26 U/L (0-35) Alanine Aminotransferase (ALT/SGPT) 24 U/L (0-56) Alkaline Phosphatase 98 U/L (0-126) Troponin I < 0.012 ng/ml Total Protein 7.3 g/dl (6.3-8.2) Albumin 4.3 g/dl (3.5-5.0) Lipase 131 U/L (23-300) Helicobacter pylori IgG Antibody Negative (NEGATIVE) Chemistry Test 11/02/18 21:52 White Blood Count 9.1 k/uL (4.5-11.0) Red Blood Count 4.95 M/uL (4.17-5.56) Hemoglobin 16.0 g/dL (12.0-16.0) Hematocrit 45.8 % (34.0-47.0) Mean Corpuscular Volume 92.5 fL (80.0-96.0) Mean Corpuscular Hemoglobin 32.3 pg (26.0-33.0) Mean Corpuscular Hemoglobin Concent 34.9 g/dL (32.0-36.0) Red Cell Distribution Width 13.4 % (11.5-14.5) Platelet Count 158 K/uL (150-450) Mean Platelet Volume 10.7 fL (7.2-11.1) Neutrophils (%) (Auto) 85.2 % (39.4-72.5) Lymphocytes (%) (Auto) 10.4 % (17.6-49.6) Monocytes (%) (Auto) 4.1 % (4.1-12.4) Eosinophils (%) (Auto) 0.0 % (0.4-6.7) Basophils (%) (Auto) 0.3 % (0.3-1.4) Nucleated RBC Relative Count (auto) 0.0 /100WBC Neutrophils # (Auto) 7.7 K/uL (2.0-7.4) Lymphocytes # (Auto) 0.9 K/uL (1.3-3.6) Monocytes # (Auto) 0.4 K/uL (0.3-1.0) Eosinophils # (Auto) 0.0 K/uL (0.0-0.5) Basophils # (Auto) 0.0 K/uL (0.0-0.1) Nucleated RBC Absolute Count (auto) 0.00 K/uL Glomerular Filtration Rate Calc 57.1 Calcium Level 9.2 mg/dl (8.4-10.2) Total Bilirubin 1.4 mg/dl (0.2-1.3) Aspartate Amino Transf (AST/SGOT) 26 U/L (0-35) Alanine Aminotransferase (ALT/SGPT) 24 U/L (0-56) Alkaline Phosphatase 98 U/L (0-126) Troponin I < 0.012 ng/ml Total Protein 7.3 g/dl (6.3-8.2) Albumin 4.3 g/dl (3.5-5.0) Lipase 131 U/L (23-300) Helicobacter pylori IgG Antibody Negative (NEGATIVE) (ANAY HODGES DO) EKG/Imaging EKG Interpretation 12 lead EKG: Time of EKG 2115. Rhythm: Sinus rhythm, ventricular rate 81 bpm. Sinus arrhythmia. [place]: normal QRS: normal ST segments: No ST depression or elevation identified. (DREW SINGH [facility]-) Imaging Please see official radiology report (ANAY HODGES DO) ED Course/Re-evaluation Clinical Indication for ER IV: Hydration, IV Access ED Course Patient was admitted to a room. A history and physical were obtained. Differential diagnoses were considered. An IV was started. A CBC, CMP were obtained. A 1 L normal saline bolus was given. 4 mg IV morphine, 12.5 mg IV Phenergan were given. Dr. Holman was available at the time of my dictation and was able to briefly speak with the patient, I will proceed with a CT of the abdomen and pelvis. Patient is positive for celiac disease based on histology. Turned Over The care of the patient was turned over to Dr. Hodges. KARO Jimenez I authorize my typed signature that I authenticated this report. (DREW SINGH-) ED Course I assumed inpatient care from Drew Singh at 2230. Patient was pending CT imaging results. Patient had been briefly evaluated by Dr. Holman with whom she has an appointment tomorrow. CT imaging showed no acute findings. Please see official radiology report for further details. Patient was discharged in stable condition, hemodynamically stable. Return precautions were provided. Recommend the patient pursues a gluten-free diet as she has been diagnosed with celiac's. Decision to Disposition Date: November 02, 2018 Decision to Disposition Time: 23:31 (ANAY HODGES DO) Depart Departure Latest Vital Signs Vital Signs Date Time Temp Pulse Resp B/P (MAP) Pulse Ox O2 Delivery O2 Flow Rate FiO2 11/02/18 23:39 119/72 (88) 11/02/18 23:31 71 98 11/02/18 21:45 2.0 11/02/18 20:30 97.7 28 Room Air (ANAY HODGES DO) Impression: Primary Impression: Abdominal pain Additional Impression: Nausea & vomiting Condition: Improved Disposition: HOME OR SELF-CARE Referrals: RAKAN GONZALEZ DNP, FNP-PHYLLIS (PCP) Patient Instructions: Abdominal Pain (ED), Acute Nausea and Vomiting (ED) Additional Instructions: Please drink plenty of water. Please avoid gluten-containing products. Please keep your appointment with Dr. Holman tomorrow as scheduled. Please return promptly if you develop worsening symptoms, fevers, inability to keep down food or fluids. Problem Qualifiers DREW SINGH November 02, 2018 20:37 ANAY HODGES DO November 02, 2018 22:41
[2018-11-02] MEDS ORDERED: NS(*) 0.9% 1000 ML BAG 1,000 ML IV ONE (21:02)
[2018-11-02] MEDS ORDERED: PROMETHAZINE 25 MG/ML 1 ML AMP IVP ONE (21:05)
[2018-11-02] MEDS ORDERED: MORPHINE 4 MG/ML SDV IVP ONE (21:05)
[2018-11-02] MEDS ORDERED: IOPAMIDOL 76% 100 ML INFUS BTL 100 ML ONE (21:24)
--- NOTE | 2018-11-02 21:27 | EKG ---
FACILITY: [facility] - [place] PATIENT NAME: MIAN FRAZIER : [id number] MR: [id number] V: [id number] EXAM DATE: ORDERING PHYSICIAN: DOROTHEA SINGH TECHNOLOGIST: HEATHER Test Reason : EPIGASTRIC PAIN Blood Pressure : / mmHG Vent. Rate : 081 BPM Atrial Rate : 081 BPM P-R Int : 182 ms QRS Dur : 082 ms QT Int : 432 ms P-R-T Axes : 070 020 050 degrees QTc Int : 501 ms Sinus rhythm with marked sinus arrhythmia Prolonged QT Abnormal ECG When compared with ECG of 12-MAY-2018 15:50, QT has lengthened Confirmed by JUANA SANDOVAL ([id number]) on 11/03/2018 6:40:20 AM Referred By: Confirmed By:JUANA SANDOVAL
[2018-11-02 22:12] LABS: PLATELET COUNT, AUTOMATED 158 K/uL (150-450)
--- NOTE | 2018-11-02 23:25 | RADIOLOGY IMAGING REPORT ---
FACILITY: [facility] PATIENT NAME: Jael Covington : 1960 MR: [id number] V: [id number] EXAM DATE: [id number] ORDERING PHYSICIAN: DOROTHEA SINGH TECHNOLOGIST: Location: [facility] - [place] Patient: Jael Covington : 1960 Visit/Account:[id number] Date of Sevice: 11/02/2018 COMPUTED TOMOGRAPHY ABDOMEN AND PELVIS WITH INTRAVENOUS CONTRAST DATE OF EXAM: 11/02/2018 9:02 PM INDICATION: Epigastric pain, N/V/D. COMPARISON: 10/04/2018 and previous. TECHNIQUE: Contrast enhanced abdomen and pelvis CT performed during the injection of 75 ml of Isovue 370. Sagittal and coronal reconstructions were performed. One of the following dose optimization te chniques was utilized in the performance of this exam: Automated exposure control; adjustment of the mA and/or kV according to the patient's size; or use of an iterative reconstruction technique. Spec [facility] details can be referenced in the facility's radiology CT exam operational policy. FINDINGS: Lung bases: Multiple bilateral pulmonary nodules measuring up to 5 mm in diameter are not significant ly changed compared to 08/28/2018. Mild atelectasis. Liver and hepatic vasculature: No acute abnormality or suspicious lesion. Gallbladder and bile ducts: Cholecystectomy. Spleen: Normal. Pancreas: Normal. Adrenals: Normal. Kidneys, ureters and bladder: Question subcentimeter cyst in the inferior pole of the right kidney. No acute abnormality or suspicious lesion. Retroperitoneum and aorta: Normal. GI tract, mesentery and peritoneum: Nonacute. Normal appendix. Mild colonic diverticulosis. Small hiatal hernia. Unchanged simple appearing fluid collection in the right lower quadrant on image 98 series 2 measuring 6.7 x 6.4 cm, possibly lymphocele or inclusion cyst. Uterus and adnexa: Lobular morphology of the uterus likely related to underlying leiomyomas. Otherwi se unremarkable. Bones and soft tissues: No acute abnormality or suspicious lesion. IMPRESSION: 1. No acute abnormality. 2. Multiple bilateral pulmonary nodules measuring up to 5 mm in diameter are not significantly carnes ed compared to 08/28/2018. 3. Multiple additional nonacute findings as described. [employer] SOC[employer]ET[employer] FOLLOW-UP GUIDELINES FOR NEWLY DETECTED INCIDENTAL NODULES IN PERSONS 35 YEARS OF AGE OR OLDER. *These recommendations do NOT apply to lung cancer screening, patients with immunosuppression or wai ents with a known primary malignancy. NODULE(S) IDENTIFIED ON INCOMPLETE CHEST If nodule size is < 6 mm: * No further investigation on the basis of the estimated low risk of malignancy. LOW RISK PATIENT: Minimal or absent history of tobacco use and of other known risk factors. HIGH RISK PATIENT: Tobacco use, family history of lung cancer, upper pulmonary lobe location of nodul e, presence of emphysema, pulmonary fibrosis, older age. Deep H, Raisa DP, Gisele PENNINGTON, et al. Guidelines for Management of Incidental Pulmonary Nodules Dete cted on CT Images: From the Fleischner Society 2017. Radiology. [facility] Report Dictated By: Agustín Nguyen MD at 11/02/2018 11:10 PM Report E-Signed By: Agustín Nguyen MD at 11/02/2018 11:22 PM WSN:[id number]
[2018-11-02 23:39] VITALS: BP 119/72
[2018-11-03] MEDS ORDERED: TRAM-420 PO (15:29)
[2018-11-03] MEDS ORDERED: PROM-110 PO (15:29)
[2018-11-08] MEDS ORDERED: METO10I PO (13:24)
[2018-11-10] MEDS ORDERED: MECL25TA9 PO (16:18)
== END 2018-11-02 23:44 | disposition home or self-care (01) ==
LOC: ER 20:53
DX: R10.9 Unspecified abdominal pain (principal); R11.2 Nausea with vomiting, unspecified; E03.9 Hypothyroidism, unspecified; E78.00 Pure hypercholesterolemia, unspecified; I10 Essential (primary) hypertension; J45.909 Unspecified asthma, uncomplicated; K21.9 Gastro-esophageal reflux disease without esophagitis; M06.9 Rheumatoid arthritis, unspecified; M79.7 Fibromyalgia; Z79.899 Other long term (current) drug therapy
CPT/HCPCS: 36415; 74177; 83690; 84484; 85025; 86677; 93005; 96360; 99284; J2270; J2550; J7030; Q9967; 82040; 82247; 82310; 82374; 82435; 82565; 82947; 84075; 84132; 84155; 84295; 84450; 84460; 84520

== ENCOUNTER 2018-11-06 14:41 | Emergency (ER) | payer MEDICAID ==
[~2018-11-06 14:41] MED LIST changes: +TRAM-420 PO
--- NOTE | 2018-11-06 15:00 | ER Report ---
History and Physical Time Seen By MD: 15:00 Hx. of Stated Complaint: ABDOMINAL PAIN, NAUSEA AND VOMITTING SINCE 1099. PATIENT WAS DIAGNOSED WITH CELIAC'S DISEASE ON TUESDAY. UNABLE TO KEEP ANY MEDICATIONS HPI/ROS CHIEF COMPLAINT: Vomiting, diarrhea HISTORY OF PRESENT ILLNESS: 58 year old female presents with nausea, vomiting, diarrhea since . She was recently diagnosed with celiac disease by Dr. Holman via biopsy on Tuesday. Patient reports she felt better this morning, but then after getting to work, her vomiting and diarrhea started again. Reports she has not been able to keep anything down since . She reports drinking very little water; states once she consumes even a little water, she will vomit it back up. Reports mid abdominal pain that is deep and very painful. Reports she took a tramadol this morning for the pain, but vomitted it up 30 minutes later. She has promethazine at home for her nausea, but has not taken any today. Denies fevers, chills. REVIEW OF SYSTEMS: Constitutional: No fevers, chills. Reports decreased appetite. Respiratory: No cough, no dyspnea. Cardiovascular: No chest pain, no palpitations. Gastrointestinal: Vomiting, abdominal pain, and diarrhea as noted above. Musculoskeletal: No back pain. Allergies: Coded Allergies: Egg Derived (Verified Allergy, Severe, 11/02/18) Penicillins (Verified Allergy, Severe, 11/02/18) bee pollen (Verified Allergy, Severe, 11/02/18) Home Meds Active Scripts Promethazine Hcl (PROMETHAZINE HCL) 25 Mg Supp.rect, 25 MG RC Q8H PRN for NAUSEA/VOMITING, #12 SUPP.RECT Prov:JENSEN ELIZONDO 11/06/18 Promethazine Hcl (PROMETHAZINE HCL) 25 Mg Tablet, 12.5 MG PO Q8H, #20 TAB Prov:LISSY HOLMAN 11/03/18 Tramadol Hcl (TRAMADOL HCL) 50 Mg Tablet, 50 MG PO Q6H PRN for PAIN, #20 TAB Prov:LISSY HOLMAN 11/03/18 Furosemide (FUROSEMIDE) 40 Mg Tablet, 1 TAB PO QDAY for 90 Days, #90 TAB 4 Refills Prov:RAKAN GONZALEZ DNP, [facility] [employer] 10/16/18 Simvastatin (SIMVASTATIN) 20 Mg Tablet, 1 TAB PO HS for 90 Days, #90 TAB 4 Refills Prov:RAKAN GONZALEZ DNP [facility] 10/06/18 Promethazine Hcl (PROMETHAZINE HCL) 25 Mg Tablet, 25 MG PO Q8H for Nausea, #15 TAB 0 Refills Prov:DOMO STOKES MD 08/28/18 Omeprazole (OMEPRAZOLE) 20 Mg Capsule.dr, 1 CAP PO QDAY, #90 CAP 1 Refill Prov:RAKAN GONZALEZ DNP [facility] 06/14/18 Cholecalciferol (Vitamin D3) (VITAMIN D) 5,000 Unit Tablet, 2 TAB PO QDAY for 90 Days, #90 CAPSULE 0 Refills Prov:RAKAN GONZALEZ DNP [facility] 06/14/18 Lisinopril (LISINOPRIL) 10 Mg Tablet, 1 TAB PO QDAY for 90 Days, #90 TAB 0 Refills Prov:RAKAN GONZALEZ DNP [facility] 05/16/18 Spironolactone (ALDACTONE) 25 Mg Tablet, 1 TAB PO QHS for 90 Days, #90 TAB 1 Refill Prov:RAKAN GONZALEZ DNP [facility] 03/15/18 Tramadol/Acetaminophen (TRAMADOL-ACETAMINOPHN 37.5-325) 1 Each Tab, 1-2 TAB PO Q8H PRN for PAIN, #45 TAB 2 Refills Prov:RAKAN GONZALEZ DNP [facility] 02/15/18 Epinephrine (EPIPEN 2-LAUREN) 0.3 Mg/0.3 Ml Pen.injctr, 0.3 MG IM PRN PRN for Anaphylaxis, #1 PACK 1 Refill Prov:RAKAN GONZALEZ DNP [facility] 05/13/17 Albuterol Sulfate 90 Mcg/Act (PROAIR HFA 90 MCG/ACT) 8.5 Gm Hfa.aer.ad, 2 PUFF IH Q4-6H PRN for SHORTNESS OF BREATH, #1 INHALER 1 Refill Prov:RAKAN GONZALEZ DNP [facility] 05/13/17 Discontinued Scripts Hydrocodone Bit/Acetaminophen (HYDROCODON-ACETAMINOPHEN 5-325) 1 Each Tablet, 1 EACH PO Q4-6H PRN for PAIN, #8 TAB Prov:JENSEN ELIZONDO [facility] 10/04/18 Past Medical/Surgical History Past medical hx of migraines in college, mitral valve prolapse, HTN, hypercholesterolemia, asthma, reflux, fibromyalgia, RA, hypothyroid, Past surgical hx of cholecystectomy 2015, urethral dilation as a child, tubal removal, left knee scope, right ulnar nerve repair, tonsillectomy 1975, c- section, eye surgery as a toddler Reviewed Nurses Notes: Yes Hx Smoking: No Smoking Status: Never Smoker Exposure to Second Hand Smoke?: Yes Hx Substance Use Disorder: No Hx Alcohol Use: No Constitutional Vital Sign - Last 24 Hours 11/06/18 11/06/18 11/06/18 11/06/18 14:48 14:50 15:11 15:41 Temp 98.5 Pulse 98 96 97 Resp 18 B/P (MAP) 170/119 170/119 (136) Pulse Ox 95 99 95 O2 Delivery Room Air 11/06/18 11/06/18 11/06/18 11/06/18 15:55 15:55 16:00 16:11 Pulse 96 B/P (MAP) 189/116 (140) 189/117 (141) Pulse Ox 96 O2 Flow Rate 2.0 11/06/18 11/06/18 11/06/18 11/06/18 16:30 16:30 16:44 17:00 Pulse 98 97 B/P (MAP) 186/118 (140) 186/118 (140) 174/110 (131) 181/115 (137) Pulse Ox 96 100 11/06/18 11/06/18 11/06/18 11/06/18 17:30 18:00 18:00 18:30 Pulse 100 98 98 96 B/P (MAP) 175/114 (134) 170/110 (130) 170/110 (130) 151/103 (119) Pulse Ox 99 96 96 100 11/06/18 11/06/18 11/06/18 18:35 19:00 19:05 Pulse 96 91 B/P (MAP) 142/83 (102) Pulse Ox 100 99 Physical Exam General Appearance: The patient is alert, has no immediate need for airway protection and no current signs of toxicity. Eyes: Pupils equal and round no injection. Respiratory: Chest is non tender, lungs are clear to auscultation. Cardiac: regular rate and rhythm Gastrointestinal: Abdomen tender to palpation at mid abdomen above umbilicus. No guarding. Abdomen is soft, no masses, bowel sounds normal. Musculoskeletal: Neck: Neck is supple and non tender. Extremities have full range of motion and are non tender. Skin: No rashes or lesions. DIFFERENTIAL DIAGNOSIS: After history and physical exam differential diagnosis was considered for celiac disease, colitis, vomiting, diarrhea, UTI. Medical Decision Making Data Points Result Diagram: 11/06/18 1529 11/06/18 1529 Laboratory Hematology Test 11/06/18 15:29 Red Blood Count 5.39 M/uL (4.17-5.56) Mean Corpuscular Volume 92.5 fL (80.0-96.0) Mean Corpuscular Hemoglobin 32.6 pg (26.0-33.0) Mean Corpuscular Hemoglobin Concent 35.3 g/dL (32.0-36.0) Red Cell Distribution Width 13.1 % (11.5-14.5) Mean Platelet Volume 10.2 fL (7.2-11.1) Neutrophils (%) (Auto) 87.8 % (39.4-72.5) Lymphocytes (%) (Auto) 8.4 % (17.6-49.6) Monocytes (%) (Auto) 3.6 % (4.1-12.4) Eosinophils (%) (Auto) 0.0 % (0.4-6.7) Basophils (%) (Auto) 0.2 % (0.3-1.4) Nucleated RBC Relative Count (auto) 0.0 /100WBC Neutrophils # (Auto) 10.8 K/uL (2.0-7.4) Lymphocytes # (Auto) 1.0 K/uL (1.3-3.6) Monocytes # (Auto) 0.4 K/uL (0.3-1.0) Eosinophils # (Auto) 0.0 K/uL (0.0-0.5) Basophils # (Auto) 0.0 K/uL (0.0-0.1) Nucleated RBC Absolute Count (auto) 0.00 K/uL Sodium Level 137 mmol/L (137-145) Potassium Level 3.4 mmol/L (3.5-5.0) Chloride Level 98 mmol/L (98-107) Carbon Dioxide Level 24 mmol/L (22-31) Blood Urea Nitrogen 20 mg/dl (7-18) Creatinine 1.00 mg/dl (0.52-1.04) Glomerular Filtration Rate Calc 57.1 Random Glucose 128 mg/dl (75-110) Calcium Level 9.5 mg/dl (8.4-10.2) Total Bilirubin 1.7 mg/dl (0.2-1.3) Aspartate Amino Transf (AST/SGOT) 34 U/L (0-35) Alanine Aminotransferase (ALT/SGPT) 32 U/L (0-56) Alkaline Phosphatase 101 U/L (0-126) Total Protein 8.2 g/dl (6.3-8.2) Albumin 4.6 g/dl (3.5-5.0) Amylase Level 71 U/L (0-110) Lipase 129 U/L (23-300) Chemistry Test 11/06/18 15:29 White Blood Count 12.3 k/uL (4.5-11.0) Red Blood Count 5.39 M/uL (4.17-5.56) Hemoglobin 17.6 g/dL (12.0-16.0) Hematocrit 49.9 % (34.0-47.0) Mean Corpuscular Volume 92.5 fL (80.0-96.0) Mean Corpuscular Hemoglobin 32.6 pg (26.0-33.0) Mean Corpuscular Hemoglobin Concent 35.3 g/dL (32.0-36.0) Red Cell Distribution Width 13.1 % (11.5-14.5) Platelet Count 186 K/uL (150-450) Mean Platelet Volume 10.2 fL (7.2-11.1) Neutrophils (%) (Auto) 87.8 % (39.4-72.5) Lymphocytes (%) (Auto) 8.4 % (17.6-49.6) Monocytes (%) (Auto) 3.6 % (4.1-12.4) Eosinophils (%) (Auto) 0.0 % (0.4-6.7) Basophils (%) (Auto) 0.2 % (0.3-1.4) Nucleated RBC Relative Count (auto) 0.0 /100WBC Neutrophils # (Auto) 10.8 K/uL (2.0-7.4) Lymphocytes # (Auto) 1.0 K/uL (1.3-3.6) Monocytes # (Auto) 0.4 K/uL (0.3-1.0) Eosinophils # (Auto) 0.0 K/uL (0.0-0.5) Basophils # (Auto) 0.0 K/uL (0.0-0.1) Nucleated RBC Absolute Count (auto) 0.00 K/uL Glomerular Filtration Rate Calc 57.1 Calcium Level 9.5 mg/dl (8.4-10.2) Total Bilirubin 1.7 mg/dl (0.2-1.3) Aspartate Amino Transf (AST/SGOT) 34 U/L (0-35) Alanine Aminotransferase (ALT/SGPT) 32 U/L (0-56) Alkaline Phosphatase 101 U/L (0-126) Total Protein 8.2 g/dl (6.3-8.2) Albumin 4.6 g/dl (3.5-5.0) Amylase Level 71 U/L (0-110) Lipase 129 U/L (23-300) ED Course/Re-evaluation ED Course Upon arrival to the ED patient admitted to an exam room, hx and physical obtained, differentials considered. Patient presents with nausea, vomiting, diarrhea since . She was recently diagnosed with celiac disease by Dr. Bryant via biopsy on Tuesday. Patient reports she felt better this morning, but t hen after getting to work, her vomiting and diarrhea started again. Reports she has not been able to keep anything down since . Denies fevers. On exam, patient is tender to palpation at mid-abdomen above the umbilicus. Lungs clear to auscultation. CBC, CMP, amylase, lipase, UA ordered. IV started, 1000ml NS infused, 4mg morphine given, 12.5mg promethazine given. WBC 12.3 likely due to demargination from vomiting. Potassium slightly low with 3.4, BUN elevated to 20, likely from dehydration. Patient reports improved vomiting and pain with the morphine and promethazine. Banana given to patient. She was able to keep down a couple of bites without vomiting. Will send patient home with rectal promethazine in case she cannot keep down the oral. Patient will follow-up with Dr. Holman this week. Patient is in agreement with plan of care. Decision to Disposition Date: Nov 06, 2018 Decision to Disposition Time: 18:47 Depart Departure Latest Vital Signs Vital Signs Date Time Temp Pulse Resp B/P (MAP) Pulse Ox O2 Delivery O2 Flow Rate FiO2 11/06/18 19:05 91 99 11/06/18 19:00 142/83 (102) 11/06/18 15:55 2.0 11/06/18 14:48 98.5 18 Room Air Impression: Primary Impression: Celiac disease Additional Impression: Vomiting Condition: Improved Disposition: HOME OR SELF-CARE Referrals: RAKAN GONZALEZ DNP, [facility] (PCP) LISSY HOLMAN New Scripts Promethazine Hcl (PROMETHAZINE HCL) 25 Mg Supp.rect 25 MG RC Q8H PRN for NAUSEA/VOMITING, #12 SUPP.RECT Prov: JENSEN ELIZONDO 11/06/18 Patient Instructions: Celiac Disease (ED) Additional Instructions: Please get plenty of rest and try to drink lots of fluids. Have your water bottle with you and drink small sips frequently throughout the day. Eat small frequent meals and avoid any gluten containing products. You may take your oral promethazine, 1 tab, as needed for vomiting. If you are unable to keep down the oral promethazine, you may use a rectal suppository. Please follow-up with Dr. Holman this week. Follow-up with your primary care provider this week. Return to the ER if you experience chest pain, difficulty breathing, fevers, uncontrolled vomiting, or any other acute concerns. Problem Qualifiers Additional Impression: Vomiting Vomiting type: unspecified Vomiting Intractability: non-intractable Nausea presence: with nausea Qualified Codes: R11.2 - Nausea with vomiting, unspecified JENSEN ELIZONDO Nov 06, 2018 15:00
[2018-11-06] MEDS ORDERED: NS(*) 0.9% 1000 ML BAG 1,000 ML IV ONE (15:06)
[2018-11-06] MEDS ORDERED: PROMETHAZINE 25 MG/ML 1 ML AMP IVP ONE ×2 (15:10→19:00)
[2018-11-06] MEDS ORDERED: MORPHINE 2 MG/ML SYR IVP ONE (15:10)
[2018-11-06 15:41] LABS: PLATELET COUNT, AUTOMATED 186 K/uL (150-450)
[2018-11-06] MEDS ORDERED: PROM25SU9 RC (18:33)
[2018-11-06 19:00] VITALS: BP 142/83
[2018-11-08] MEDS ORDERED: METO10I PO (13:24)
[2018-11-10] MEDS ORDERED: MECL25TA9 PO (16:18)
== END 2018-11-06 19:24 | disposition home or self-care (01) ==
LOC: ER 15:00
DX: K90.0 Celiac disease (principal); R11.10 Vomiting, unspecified
CPT/HCPCS: 82150; 83690; 85025; 96361; 96374; 96375; 96376; 99284; J2270; J2550; J7030; 82040; 82247; 82310; 82374; 82435; 82565; 82947; 84075; 84132; 84155; 84295; 84450; 84460; 84520

== ENCOUNTER → 2018-11-20 | Outpatient (CLI) | payer MEDICAID ==
[~2018-11-20] MED LIST changes: +MECL25TA9 PO; +METO10I PO; +PROM25SU9 RC
[2018-11-20 12:24] LABS: PLATELET COUNT, AUTOMATED 160 K/uL (150-450)
--- NOTE | 2018-11-20 13:03 | RADIOLOGY IMAGING REPORT ---
FACILITY: [facility] PATIENT NAME: Jael Covington : 1960 MR: [id number] V: [id number] EXAM DATE: ORDERING PHYSICIAN: RAKAN GONZALEZ TECHNOLOGIST: Location: [facility] Patient: Jael Covington : 1960 Visit/Account:[id number] Date of Sevice: 11/20/2018 Technique: CERVICAL SPINE MIN 4 VIEW HISTORY: Neck pain Comparison studies: 05/17/2018 FINDINGS: There is no acute fracture. The vertebral body heights are preserved. Mild endplate osteo phyte formation is noted at C5. The neural foramen are patent. Minimal uncovertebral facet arthropa thy is seen within the mid cervical spine. IMPRESSION: 1. Mild degenerative changes as above. Report Dictated By: Torrey Aguila DO at 11/20/2018 12:57 PM Report E-Signed By: Torrey Aguila DO at 11/20/2018 12:59 PM WSN:[id number]
--- NOTE | 2018-11-20 14:34 | EKG ---
FACILITY: [facility] [place] PATIENT NAME: MIAN FRAZIER : [id number] MR: [id number] V: [id number] EXAM DATE: ORDERING PHYSICIAN: RAKAN GONZALEZ TECHNOLOGIST: KEZIA Howard Reason : DIZZINESS Blood Pressure : / mmHG Vent. Rate : 085 BPM Atrial Rate : 085 BPM P-R Int : 164 ms QRS Dur : 080 ms QT Int : 348 ms P-R-T Axes : 048 -11 007 degrees QTc Int : 414 ms Normal sinus rhythm Normal ECG No previous ECGs available Referred By: CARLOS BLEDSOE Confirmed By:
== END ==
LOC: LAB 11:58
PROVIDERS: ATTEND Nurse Practitioner Primary Care
DX: M54.2 Cervicalgia (principal); R42 Dizziness and giddiness; E55.9 Vitamin D deficiency, unspecified; R73.01 Impaired fasting glucose; G89.29 Other chronic pain
CPT/HCPCS: 36415; 72050; 82040; 82247; 82306; 82310; 82374; 82435; 82565; 82947; 83036; 84075; 84132; 84155; 84295; 84443; 84450; 84460; 84520; 85025; 86140; 86200; 86430

== ENCOUNTER → 2018-11-29 | Outpatient (CLI) | payer MEDICAID ==
[~2018-11-29] MED LIST changes: +GADOBENATE 529MG/1ML 15ML VIAL IVP ONE
--- NOTE | 2018-11-29 14:30 | RADIOLOGY IMAGING REPORT ---
FACILITY: [facility] - [place] PATIENT NAME: Jael Covington : 1960 MR: [id number] V: [id number] EXAM DATE: ORDERING PHYSICIAN: RAKAN GONZALEZ TECHNOLOGIST: Location: [facility] [place] Patient: Jael Covington : 1960 Visit/Account:[id number] Date of Sevice: 11/29/2018 MR BRAIN/BRAIN STEM W/ & W/O CON Comparisons: None. Additional pertinent history: Dizziness with memory difficulties TECHNIQUE: Multiplanar, multisequence brain MRI was performed with and without gadolinium contrast. CONTRAST: 15 ml of MultiHance. FINDINGS: Sagittal midline structures and craniocervical junction: Negative. Midline shift: None. Ventricles: Negative. Brain parenchyma: Diffusion weighted imaging: Negative. Gradient sequence: Negative. T2 weighted FLAIR images: Negative. Extra-axial spaces: Negative. Dural venous sinuses and major arterial flow voids: Negative. Intracranial enhancement: Negative.. Mastoid air cells and paranasal sinuses: Moderate size mucus retention cyst involving the right maxil neno sinus. Surrounding soft tissues and orbits: Negative. Impression: 1. No evidence of acute intracranial pathology. 2. Underlying paranasal sinus disease. Report Dictated By: Godwin Encarnacion MD at 11/29/2018 2:09 PM Report E-Signed By: Godwin Encarnacion MD at 11/29/2018 2:24 PM WSN:[id number]
== END ==
LOC: MRI 01:24
PROVIDERS: ATTEND Nurse Practitioner Primary Care
DX: R42 Dizziness and giddiness (principal); R41.3 Other amnesia
CPT/HCPCS: 70553; A9577